=== PATIENT | female | born 1950 | race Caucasian/White ===

== ENCOUNTER 2017-04-14 13:00 | Emergency (ER) | payer MEDICARE, BC, SELFPAY ==
[2017-04-14 13:01] VITALS: BP 113/70; PULSE 92; RESP 18; TEMP 37.3; O2SAT 94; BMI 26.3
--- NOTE | 2017-04-14 13:11 | CT_ITS ---
STUDY: CT ABDOMEN AND PELVIS WITH CONTRAST REASON FOR EXAM: Female, 67 years old. Lower abdominal pain and diarrhea. History of diverticulitis. RADIATION DOSAGE (If Supplied By Facility): CTDIvol = ( 20.39 ) mGy, DLP = ( 1057.14 ) mGycm TECHNIQUE: Transaxial images were obtained from the dome of the diaphragm to the symphysis pubis without oral contrast. 100mL ml of Isovue 300 contrast was administered. Sagittal and coronal images were reconstructed. Individualized dose optimization techniques were used for this CT. COMPARISON: None. FINDINGS: Minimal dependent edema in the posterior lung bases. The visualized portions of the heart are within normal limits. Subcentimeter hypodensity in the right hepatic lobe may represent cyst. Liver ultrasound will help confirm if desired. Normal gallbladder and extrahepatic biliary system. Normal spleen. Normal pancreas. Normal bilateral adrenal glands. Small hypodense cyst in the right kidney. No stones or hydronephrosis. Normal left kidney. Prominent hiatal hernia. Normal small intestine. Multiple diverticula along the sigmoid colon with intramural thickening and inflammatory changes of the pericolic fat suggesting acute diverticulitis. No diverticular abscess. The appendix is visualized and appears normal. Normal abdominal aorta. Normal inferior vena cava. Normal retroperitoneum. Normal urinary bladder. Normal abdominal wall. Pronounced bilateral L5-S1 degenerative facet arthropathy. Moderately pronounced right L4-L5 degenerative facet arthropathy and moderate left L4-L5 degenerative facet arthropathy. Moderate bilateral L3-L4 degenerative facet arthropathy. CT/Abdomen/Pelvis W IV Cont ONLY IMPRESSION: 1. Acute diverticulitis of the sigmoid colon without diverticular abscess. 2. Small free fluid in the cul-de-sac. 3. Prominent hiatal hernia. 4. Subcentimeter hypodense cyst in the right hepatic lobe. Liver ultrasound with confirm if desired. 5. Nonenhancing hypodense cyst in the right kidney. 6. Pronounced bilateral L5-S1 degenerative facet arthropathy, moderately pronounced right L4-L5 degenerative facet arthropathy, moderate left L4-L5 degenerative facet arthropathy and moderate bilateral L3-L4 degenerative facet arthropathy. Electronically Signed: Cole Boudreaux MD at 14:30 EST , Service support ,
--- NOTE | 2017-04-14 13:14 | ED.VISSUMM ---
- ER Visit Summary Date of Service: 04/14/17 Chief Complaint: Abdominal pain History of Present Illness: The patient is a 67 F presents to the emergency department with abdominal pain. The symptoms started over the past 24 hours. Patient describes a cramping, bandlike pain across her lower abdomen. She states that she has had the same symptoms before about a year ago. She was seen in the emergency department in [place] and diagnosed with diverticulitis. She has had no prior abdominal surgery. She does admit to some chills. She has had nausea without vomiting. She denies any change in bowel habits. She has not found anything that improves the symptoms. Physical Examination: Vital signs reviewed General: Well-nourished, well-developed Head: Normocephalic, atraumatic Eyes: Pupils equal and reactive, extraocular muscles intact Neck, supple, no lymphadenopathy Heart: Regular rate and rhythm Respiratory: No distress, clear bilaterally Abdomen: Soft, mildly tender in the suprapubic area into the left lower quadrant without guarding, nondistended, no peritoneal signs Back: Nontender Extremities: Nontender, no edema, no cords Skin: Normal color no rash Neuro: Alert and oriented, no focal or lateralizing deficits Test Results: [] Emergency Department Course and Treatment: The patient has an examination that is consistent with diverticulitis. She has no guarding or peritoneal signs. With her age, I did obtain a CT of her abdomen and pelvis. This does show acute diverticulitis of the sigmoid colon. There is no perforation or abscess. Her labs are unremarkable. She declined analgesics or antiemetics. On reevaluation she is resting comfortably. I did discuss options with the patient. She wants to attempt outpatient therapy and I feel this is reasonable. The patient will be started on Cipro and Flagyl. I did financial services counselor her on the importance of close outpatient follow-up. If she does have change in symptoms, I do want her to come back to the emergency department. She is comfortable with this plan of care. Treatment Plan: [] Disposition: Discharge Impression: 1. Acute diverticulitis This note was generated with Flexuspineation software. It may contain incorrect words, spelling, and punctuation that were not noted in review of the chart prior to signing ED Disposition - Plan for ED Patient: Chief Complaint: Abd Pain Instructions: ED Diverticulitis Prescriptions: Ciprofloxacin [Cipro] 500 mg PO BID #20 tab Metronidazole [Flagyl] 500 mg PO BID #20 tab Referrals: Lolis Witt DO [Primary Care Provider] -
[2017-04-14] MEDS: 0.9% Normal Saline 1,000 ML 1000 ML IV (13:21)
[2017-04-14 13:30] LABS: Bacteria 0 SEEN /hpf (None Seen); Mucous, Urine 0 SEEN /hpf (<or=2+); Red Blood Cells-Urine 0 SEEN /hpf (0-5)
[2017-04-14 13:32] LABS: Color, Urine Yellow (Yellow); Glucose, Dipstick Normal (Normal); Ketone-Dipstick Negative (Negative); Leukocyte Esterase-Dipstick 500 /ul (Negative); Nitrite-Dipstick Negative (Negative); Occult Blood-Urine 10 /ul (Negative); Protein-Dipstick 15 mg/dl (Negative); Urine Bilirubin Dipstick Negative (Negative); Urine Clarity Clear (Clear); Urine Urobilinogen Normal (Normal)
[2017-04-14 13:33] LABS: Absolute Lymphocyte Count 2.17 X10^3/ul (0.83-4.51); Absolute Neutrophil Count 7.5 X10^3/uL (2.0-7.7); Basophil# 0.06 X10^3/uL; Basophil% 0.6 % (0-1); Eosinophil# 0.21 X10^3/uL; Eosinophils% 1.9 % (0-5); Hematocrit 41.7 % (37-47); Lymphocyte # 2.17 X10^3/ul (4.0); Mean Corp Hgb Conc 33.6 g/gl (32-36); Mean Corpuscular Hgb 29.8 pg (27.0-32.0); Mean Corpuscular Volume 88.7 fL (81-99); Mean Platelet Vol. 10.6 fl (6.2-12.0); Monocyte# 0.92 X10^3/uL; Monocyte% 8.5 % (0-10); Neutrophil # 7.47 X10^3/uL (2.7-7.7); Neutrophil % 68.8 % (47-70); POSITIVE COUNT NO; POSITIVE DIFFERENTIAL NO; POSITIVE MORPHOLOGY NO; Platelet Count 205 K/mm3 (150-450); RBC Distribution Width CV 13.5 % (11.6-14.6); RBC Distribution Width SD 43.3 fl (35.1-43.9); White Blood Count 10.9 K/mm3 (4.4-11.0)
[2017-04-14 13:35] LABS: Squamous Epithelial Cells - UA 0-5 SEEN /hpf (5-10); White Blood Cells 0-5 SEEN /hpf (0-5)
[2017-04-14 13:49] LABS: ALB/GLOB Ratio 0.8 RATIO (0.9-2.4); AST(SGOT) 11 U/L (15-37); Alanine Aminotransfer ALT/SGPT 17 U/L (13-56); Albumin, Serum 3.1 g/dL (3.2-5.0); Alkaline Phosphatase 64 U/L (45-117); Anion Gap 9 (5-15); BUN 7 mg/dL (7-18); BUN/Creat Ratio 8.7 RATIO (10-20); Calcium,Total 8.3 mg/dL (8.5-10.1); Chloride 106 mmol/L (98-107); Creatinine, Serum 0.81 mg/dL (0.55-1.02); EST Glomerular Filtration Rate 75 mL/min (>60); Est Glom Filt Rate - Afr Amer 91 mL/min (>60); Estimated Creatinine Clearance 64.64 ml/min; Glucose 92 mg/dL (74-106); Potassium 3.8 mmol/L (3.5-5.1); Protein, Total 7.1 g/dL (6.4-8.2); Sodium Level 141 mmol/L (136-145)
[2017-04-14 15:02] VITALS: BP 96/58; PULSE 76; RESP 16; O2SAT 97
--- NOTE | 2017-04-14 15:03 | ED.RN ---
REVIEWED D/C INSTRUCTIONS, FOLLOW UP CARE, PRESCRIPTIONS, AND S/S THAT WOULD WARRANT A RETURN TO THE ED WITH PT. PT VERBALIZED AN UNDERSTANDING AND DENIES FURTHER QUESTIONS FOR THIS RN. PT SKIN P/W/D, RESP EVEN AND UNLABORED, PT A&O X 3, NO DISTRESS NOTED. PT AMBULATED OUT OF ED, GAIT STEADY.
== END 2017-04-14 15:04 | disposition home or self-care (01) ==
LOC: ED 13:37
PROVIDERS: Emergency Provider Emergency Medicine; Family Provider Internal Medicine; PCP Internal Medicine
DX: K57.32 Diverticulitis of large intestine without perforation or abscess without bleeding (principal); Z87.19 Personal history of other diseases of the digestive system
CPT/HCPCS: 74177; 80053; 81001; 85025; 96360; 96361; 99283; J7030; Q9967; A4216

== ENCOUNTER 2017-06-07 17:09 | Emergency (ER) | payer MEDICARE, BC, SELFPAY ==
[2017-06-07 17:10] VITALS: BP 129/76; PULSE 80; RESP 18; TEMP 37.1; O2SAT 96; BMI 26.3
[2017-06-07 17:55] LABS: Absolute Lymphocyte Count 2.07 X10^3/ul (0.83-4.51); Absolute Neutrophil Count 6.1 X10^3/uL (2.0-7.7); Basophil# 0.03 X10^3/uL; Basophil% 0.3 % (0-1); Eosinophils% 5.3 % (0-5); Hematocrit 40.3 % (37-47); Lymphocyte # 2.07 X10^3/ul (4.0); Mean Corp Hgb Conc 32.3 g/gl (32-36); Mean Corpuscular Hgb 28.8 pg (27.0-32.0); Mean Corpuscular Volume 89.4 fL (81-99); Monocyte# 0.64 X10^3/uL; Monocyte% 6.8 % (0-10); Neutrophil # 6.14 X10^3/uL (2.7-7.7); Neutrophil % 65.4 % (47-70); Platelet Count 199 K/mm3 (150-450); RBC Distribution Width CV 14.4 % (11.6-14.6); RBC Distribution Width SD 47.2 fl (35.1-43.9); Red Blood Count 4.51 M/mm3 (4.2-5.4); White Blood Count 9.4 K/mm3 (4.4-11.0)
[2017-06-07 18:00] LABS: Bacteria 0 SEEN /hpf (None Seen); Mucous, Urine 0 SEEN /hpf (<or=2+); Red Blood Cells-Urine 0 SEEN /hpf (0-5)
[2017-06-07 18:04] LABS: Anion Gap 8 (5-15); BUN 18 mg/dL (7-18); BUN/Creat Ratio 20.7 RATIO (10-20); Calcium,Total 8.8 mg/dL (8.5-10.1); Chloride 102 mmol/L (98-107); Creatinine, Serum 0.87 mg/dL (0.55-1.02); EST Glomerular Filtration Rate 69 mL/min (>60); Est Glom Filt Rate - Afr Amer 83 mL/min (>60); Estimated Creatinine Clearance 60.18 ml/min; Glucose 90 mg/dL (74-106); Potassium 3.8 mmol/L (3.5-5.1); Sodium Level 140 mmol/L (136-145)
[2017-06-07 18:16] LABS: POSITIVE COUNT NO; POSITIVE DIFFERENTIAL NO; POSITIVE MORPHOLOGY NO
[2017-06-07 18:17] LABS: Color, Urine Yellow (Yellow); Glucose, Dipstick Normal (Normal); Ketone-Dipstick 5 mg/dl (Negative); Leukocyte Esterase-Dipstick 500 /ul (Negative); Nitrite-Dipstick Negative (Negative); Occult Blood-Urine Negative /ul (Negative); Protein-Dipstick Negative (Negative); Specific Gravity, Urine 1.005 (1.002-1.030); Urine Bilirubin Dipstick Negative (Negative); Urine Clarity Sl. Cloudy (Clear); Urine Urobilinogen Normal (Normal)
[2017-06-07 18:39] LABS: Amorphous Sediment 1+; Squamous Epithelial Cells - UA 0-5 SEEN /hpf (5-10); White Blood Cells 0-5 SEEN /hpf (0-5)
--- NOTE | 2017-06-07 18:53 | ED.VISSUMM ---
- ER Visit Summary Date of Service: 06/07/17 Chief Complaint: Abdominal pain History of Present Illness: The patient is a 67 F with abdominal pain in the suprapubic area that started early this morning. It has been progressively worsening throughout the day. Patient states this pain feels like her prior rounds of diverticulitis. She has had no vomiting or diarrhea. She states her temperature was 99.6 this afternoon. Patient denies any prior abdominal surgeries. Her last treatment for diverticulitis was approximately 7 weeks ago. Patient states her symptoms were completely resolved until this morning. Physical Examination: Vital signs are unremarkable. Patient is afebrile. Head neck examination is normal. Is regular rate and rhythm. On lung sounds are clear. Abdomen is soft with minimal tenderness in the suprapubic region. There is no guarding or rebound. She has hypoactive but present bowel sounds throughout. Test Results: CBC and chemistry studies are unremarkable. Urinalysis shows 500 leukocyte esterase with 0-5 white cells and 5 epithelial cells. Emergency Department Course and Treatment: Patient just had CT imaging less than 2 months ago. I am reluctant to reimage her at this time. Patient will be treated with a course of Cipro and Flagyl. If she worsens over the weekend she will return for further treatment. I will speak with primary care physician to update them on her care and need for close follow-up. Treatment Plan: [] Disposition: Discharge Impression: Abdominal pain, probable diverticulitis This note was generated with Drive Y[employer] dictation software. It may contain incorrect words, spelling, and punctuation that were not noted in review of the chart prior to signing ED Disposition - Plan for ED Patient: Chief Complaint: Abd Pain Referrals: Lolis Witt DO [Primary Care Provider] -
--- NOTE | 2017-06-07 18:55 | ED.DEP ---
ED Disposition - Plan for ED Patient: Disposition: Home or Assisted Living Chief Complaint: Abd Pain Instructions: ED Diverticulitis Prescriptions: Ciprofloxacin [Cipro] 500 mg PO BID #14 tablet Metronidazole [Flagyl] 500 mg PO Q6H #40 tablet Referrals: Lolis Witt DO [Primary Care Provider] - 5-7 Days
[2017-06-07] MEDS: Ciprofloxacin 500 MG Tablet PO (19:04)
[2017-06-07 19:12] VITALS: BP 130/66; PULSE 74; RESP 16; O2SAT 97
== END 2017-06-07 19:16 | disposition home or self-care (01) ==
PROVIDERS: Emergency Provider Emergency Medicine; Family Provider Internal Medicine; PCP Internal Medicine
DX: R10.30 Lower abdominal pain, unspecified (principal); R11.0 Nausea; Z87.19 Personal history of other diseases of the digestive system
CPT/HCPCS: 80048; 81001; 85025; 87086; 87088; 99284; J7040; A4216

== ENCOUNTER → 2018-10-20 | Outpatient (CLI) | payer MEDICARE, BC, SELFPAY ==
--- NOTE | 2018-10-20 08:38 | BI_ITS ---
MAMMOGRAPHY - BILATERAL SCREENING 3-D TOMOSYNTHESIS REASON FOR EXAM: Female, 68 years old. Bilateral Screening 3-D tomosynthesis PERTINENT HISTORY: Grandmother with breast cancer.. TECHNIQUE: 2-D mammograms and 3-D Tomosynthesis of the breast (s) were performed. CAD was performed. COMPARISON: 08/13/2016, 08/09/2015 FINDINGS: The breast composition is composed of scattered fibroglandular density. Scattered benign calcifications are seen. No dense spiculated masses or suspicious microcalcifications are identified. No architectural distortion is identified. There is no skin thickening or retraction. There has been no significant change since the prior study. BI/SCREEN MAMM (CAD) W/SHALOM BILAT IMPRESSION: No mammographic signs of malignancy. Routine yearly mammograms recommended. ASSESSMENT CATEGORY: BIRADS Category 2: Benign. A letter regarding these results will be sent to the patient by the facility within 30 days. FOLLOW UP RECOMMENDATION: Yearly follow up mammogram recommended. (A) Approximately 10% of breast cancers are not detected by mammography. A normal mammogram should not delay biopsy of a clinically suspicious abnormality. Electronically Signed: Denny Reed MD at 19:22 EDT Tel [phone], Service support ,
== END | disposition home or self-care (01) ==
LOC: OPBI 08:36
PROVIDERS: Family Provider Internal Medicine; PCP Internal Medicine; Referring Provider Nurse Practitioner Women's Health; Visit Provider Nurse Practitioner Women's Health
DX: Z12.31 Encounter for screening mammogram for malignant neoplasm of breast (principal)
CPT/HCPCS: 77063; 77067

== ENCOUNTER → 2018-10-29 | Outpatient (CLI) | payer MEDICARE, BC, SELFPAY ==
[2018-10-20 09:14] VITALS: BMI 26.3
[2018-10-28 09:12] VITALS: BMI 26.3
--- NOTE | 2018-10-29 08:22 | BD_ITS ---
STUDY: DUAL ENERGY X-RAY ABSORPTIOMETRY / DXA REASON FOR EXAM: Female, 68 years old. The patient is postmenopausal. Loss of height. TECHNIQUE: Bone Mineral Density (BMD) measurements of lumbar spine and bilateral hips were obtained. COMPARISON: Comparison is made with prior study dated August 09, 2015. FINDINGS: Lumbar Spine (L1-L4): g/cm2 (0.675) / T-score (-4.1) / Z-score (-2.4) Findings are suggestive of osteoporosis with a high fracture risk. Left Femur Total: g/cm2 (0.748) / T-score (-2.1) / Z-score (-0.6) Left Femoral Neck: g/cm2 (0.664) / T-score (-2.7) / Z-score (-1.0) Right Femur Total: g/cm2 (0.712) / T-score (-2.3) / Z-score (-0.9) Right Femoral Neck: g/cm2 (0.662) / T-score (-2.7) / Z-score (-1.0) The T-Scores on the most recent prior examination were: Lumbar Spine (L1-L4): There has been worsening of bone density since the previous examination. Left Femur Total: which represents a worsening of 7.5%. Right Femur Total: which represents a worsening of 4.3%. BD/Dexa Bone Density Study IMPRESSION: The patient is considered osteoporotic as outlined below according to World Dash Organization (WHO) criteria with a high fracture risk. There has been worsening of bone density since the previous examination. Reference Information: The T-score is the number of standard deviations above or below the standard which is normal for young adults at their peak bone mineral density. The World Health Organization (WHO) interprets the T-scores as follows: Above -1 Normal bone density Between -1 and -2.5 Osteopenia Equal to / or below -2.5 Osteoporosis As a practical clinical guideline, osteopenia may be graded as follows: Mild -1 through -1.5 Moderate -1.6 through -2.0 Severe -2.1 through -2.4 The Z-score is the number of standard deviations above or below age-matched controls. A Z-score of less than -1.5 would be considered abnormal. References: 1. NIH Osteoporosis and Related Bone Diseases http://www.osteo.org 2. International Society for Clinical Densitometry http://www.iscd.org 3. National Osteoporosis Foundation http://www.nof.org Electronically Signed: Zion Ervin, at 15:18 EDT , Service support ,
== END | disposition home or self-care (01) ==
LOC: OPBD 08:16
PROVIDERS: Family Provider Internal Medicine; PCP Internal Medicine; Referring Provider Obstetrics & Gynecology; Visit Provider Obstetrics & Gynecology
DX: M81.0 Age-related osteoporosis without current pathological fracture (principal)
CPT/HCPCS: 77080

== ENCOUNTER → 2018-10-29 | Outpatient (CLI) | payer MEDICARE, BC, SELFPAY ==
[2018-10-28 09:12] VITALS: BMI 26.3
[2018-10-29 09:54] LABS: AST(SGOT) 18 U/L (15-37); Alanine Aminotransfer ALT/SGPT 25 U/L (13-56); Albumin, Serum 3.5 g/dL (3.2-5.0); Alkaline Phosphatase 74 U/L (45-117); Anion Gap 10 (5-15); BUN 13 mg/dL (7-18); Calcium,Total 8.6 mg/dL (8.5-10.1); Chloride 108 mmol/L (98-107); Cholesterol 225 mg/dL (200); Creatinine, Serum 0.87 mg/dL (0.55-1.02); EST Glomerular Filtration Rate 69 mL/min (>60); Est Glom Filt Rate - Afr Amer 83 mL/min (>60); Globulin 3.5 g/dL (2.2-4.2); Glucose 89 mg/dL (74-106); High Density Lipoprotein 61 mg/dL; Potassium 4.2 mmol/L (3.5-5.1); Sodium Level 145 mmol/L (136-145); Triglycerides 127 mg/dL; Very Low Density Lipoprotein 25 mg/dL (5-40)
[2018-10-29 10:49] LABS: Vitamin D,25 Hydroxy 23.4 ng/mL (29.95-100.01)
== END | disposition home or self-care (01) ==
LOC: PAVLAB 08:40
PROVIDERS: Family Provider Internal Medicine; PCP Internal Medicine; Referring Provider Obstetrics & Gynecology; Visit Provider Obstetrics & Gynecology
DX: M81.0 Age-related osteoporosis without current pathological fracture (principal); Z13.220 Encounter for screening for lipoid disorders; Z13.1 Encounter for screening for diabetes mellitus
CPT/HCPCS: 36415; 80053; 80061; 82306

== ENCOUNTER → 2018-11-26 15:33 | Outpatient (CLI) | payer MEDICARE, BC, SELFPAY ==
[2018-11-26 14:07] VITALS: BMI 25.7
--- NOTE | 2018-11-26 15:36 | EKG12_ITS ---
Test Reason : Blood Pressure : / mmHG Vent. Rate : 056 BPM Atrial Rate : 056 BPM P-R Int : 154 ms QRS Dur : 088 ms QT Int : 400 ms P-R-T Axes : 013 021 061 degrees QTc Int : 386 ms Sinus bradycardia Otherwise normal ECG No previous ECGs available Confirmed by MAISHA BA, RACHEL ([id number]), web editor LAWRENCE HILL ([id number]) on 11/28/2018 10:41:35 A M Referred By: Rich Rivera Confirmed By:RITO FERRERA MD
== END ==
PROVIDERS: Family Provider Internal Medicine; PCP Internal Medicine; Referring Provider Internal Medicine; Visit Provider Internal Medicine
DX: E78.5 Hyperlipidemia, unspecified (principal); Z82.49 Family history of ischemic heart disease and other diseases of the circulatory system
CPT/HCPCS: 93005

== ENCOUNTER → 2018-12-10 | Outpatient (CLI) | payer MEDICARE, BC, SELFPAY ==
[2018-12-10 08:06] VITALS: BMI 25.7
[2018-12-10 08:26] LABS: Bacteria 0 SEEN /hpf (None Seen); Mucous, Urine 0 SEEN /hpf (<or=2+); Red Blood Cells-Urine 0 SEEN /hpf (0-5); White Blood Cells 0 SEEN /hpf (0-5)
[2018-12-10 12:35] LABS: Absolute Lymphocyte Count 1.87 X10^3/uL (0.83-4.51); Absolute Neutrophil Count 4.3 X10^3/uL (2.0-7.7); Basophil# 0.03 X10^3/uL; Basophil% 0.4 % (0-1); Eosinophil# 0.11 X10^3/uL; Eosinophils% 1.6 % (0-5); Hematocrit 43.3 % (37-47); Hemoglobin 13.8 g/dL (12.0-15.0); Lymphocyte # 1.87 X10^3/ul (4.0); Lymphocyte % 27.3 % (19-41); Mean Corp Hgb Conc 31.9 g/dL (32-36); Mean Corpuscular Hgb 29.6 pg (27.0-32.0); Mean Corpuscular Volume 92.7 fL (81-99); Mean Platelet Vol. 11.8 fl (6.2-12.0); Monocyte# 0.55 X10^3/uL; NRBC Flagged by Analyzer 0 % (0-5); Neutrophil # 4.26 X10^3/uL (2.7-7.7); Neutrophil % 62.4 % (47-70); Platelet Count 189 K/mm3 (150-450); RBC Distribution Width CV 12.5 % (11.6-14.6); RBC Distribution Width SD 42.5 fl (35.1-43.9); Red Blood Count 4.67 M/mm3 (4.2-5.4); White Blood Count 6.8 K/mm3 (4.4-11.0)
[2018-12-10 12:40] LABS: Color, Urine Yellow (Yellow); Glucose, Dipstick Normal (Normal); Ketone-Dipstick Negative (Negative); Leukocyte Esterase-Dipstick Negative /ul (Negative); Nitrite-Dipstick Negative (Negative); Occult Blood-Urine Negative /ul (Negative); Protein-Dipstick Negative (Negative); Urine Bilirubin Dipstick Negative (Negative); Urine Clarity Sl. Cloudy (Clear); Urine Urobilinogen Normal (Normal)
[2018-12-10 13:02] LABS: Squamous Epithelial Cells - UA 0-5 SEEN /hpf (5-10)
== END | disposition home or self-care (01) ==
PROVIDERS: Family Provider Internal Medicine; PCP Internal Medicine; Visit Provider Nurse Practitioner Family
DX: R10.30 Lower abdominal pain, unspecified (principal)
CPT/HCPCS: 36415; 81001; 85025

== ENCOUNTER 2019-09-12 09:39 | Emergency (ER) | payer MEDICARE, BC, SELFPAY ==
[2019-06-15 08:50] VITALS: BMI 25.7
[2019-09-12 09:40] VITALS: BP 125/92; PULSE 69; RESP 15; TEMP 36.2; O2SAT 98; BMI 23.0
--- NOTE | 2019-09-12 10:00 | RAD_ITS ---
STUDY: X-RAY - LEFT HUMERUS REASON FOR EXAM: Female, 69 years old. FALL. PAIN UPPER ARM TECHNIQUE: 2 view(s) of the humerus. COMPARISON: None. FINDINGS: Normal visualized humerus. There is no demonstrated fracture or osseous destructive process. There is no demonstrated soft tissue abnormality. RAD/Humerus min 2 Views IMPRESSION: Normal x-ray examination of the humerus. Electronically Signed: Diaz Justice MD at 10:47 EDT Tel , Service support ,
--- NOTE | 2019-09-12 10:01 | RAD_ITS ---
STUDY: X-RAY - LEFT SHOULDER REASON FOR EXAM: Female, 69 years old. FALL. PAIN UPPER ARM. YVIEW SHOULDER IS INCLUDED ON HUMERUS VIEWS TECHNIQUE: 2 view(s) of the shoulder. COMPARISON: None. FINDINGS: Normal glenohumeral articulation. Normal acromioclavicular joint. Normal acromion. Normal humeral head and visualized proximal humerus. The soft tissue structures are unremarkable. Normal visualized pulmonary apex. RAD/Shoulder min 2 Views IMPRESSION: Normal x-ray examination of the shoulder. Electronically Signed: Diaz Justice MD at 10:49 EDT Tel , Service support ,
--- NOTE | 2019-09-12 10:02 | ED.VIS.GEN ---
History of Present Illness Chief Complaint: Upper Extremity Injury Informant: Patient Narrative: Patient is a 69-year-old female who presents to the emergency department for left upper extremity injury. She states she was getting up out of the chair when she fell and landed on her left side. She is having left shoulder/humerus pain. She has difficulty moving that extremity due to the pain. She has not taken anything for that. She currently rates the pain as severe. She denies hitting her head or losing consciousness. She denies any neck or back pain. She is not on any anticoagulation or antiplatelet medications. She was able to ambulate after the event. No hip pain or lower extremity pain. She is right-handed at baseline. She denies any loss of sensation going down her arm. Past Medical History - Allergies and Home Meds Allergies/Adverse Reactions: Allergies betamethasone Allergy (Severe, Verified 11/26/18 14:05) Swelling erythromycin base Allergy (Severe, Verified 11/26/18 14:05) Swelling clindamycin Allergy (Verified 11/26/18 14:05) Swelling Penicillins Allergy (Verified 11/26/18 14:05) Hives prednisone Allergy (Verified 11/26/18 14:05) Hives ARUDIS Allergy (Uncoded 11/26/18 14:05) Swelling Primary Care Physician: Rich Rivera MD [Primary Care Provider] - Prior records reviewed: Yes Past Medical History: - - Osteoporosis Smoking Status: Never smoker Drugs: None Review of Systems All systems negative except as indicated General: Denies: Chills, Fever, Sweats Eyes: Denies: Visual changes - bilaterally, Diplopia ENT: Denies: Rhinorrhea Cardiovascular: Denies: Chest pain, Palpitations Respiratory: Denies: Dyspnea, Cough, Dyspnea on exertion Gastrointestinal: Denies: Abdominal pain, Nausea, Vomiting Genitourinary: Denies: Dysuria, Hematuria, Frequency Musculoskeletal: Reports: Extremity Pain. Denies: Neck pain, Back pain Skin: Denies: Wounds Neurological: Denies: Headache, Weakness, Numbness Physical Exam Vital Signs/Narrative: Vital Signs Temp Pulse Resp BP Pulse Ox 09/12/19 09:40 97.2 F L 69 15 125/92 H 98 Inital Vital Signs reviewed: Yes General: Well nourished, Well developed, No Acute Distress Head: Normocephalic, Atraumatic Eyes: Perrl, EOMI ENT: Moist mucous membranes, No rhinorrhea Neck: Supple, Nontender Cardiovascular: Regular rate, Regular rhythm, No murmurs Respiratory: No distress, CTA bilaterally, Chest nontender Abdomen: Soft, Nontender, Nondistended, Normal bowel sounds Back: Nontender, Normal Inspection. Negative for: Spinal tenderness Extremities: No edema, Tenderness - Left proximal humerus. Patient holding her arm against her body. 2+ radial pulse. Neurovascularly intact. Good therapy administrative assistant strength. No pain with anterior hip compression. Skin: Normal color, No rash Neurological: Alert, Oriented x3, Cranial nerves II-XII grossly intact, Normal Strength, Normal Sensation Psychological: Normal affect, Normal Mood Diagnostic/Tx/Re-eval - Medical Decision Making Patient presents to the emergency department after a fall today. She is complaining of left upper extremity pain. Will give Tylenol for treatment as she is requesting this. We will also obtain x-rays of the upper extremity. She did not hit her head or lose consciousness she is not on anticoagulation. We will hold off on CT scan of the head and cervical spine. X-rays did not show any acute fracture or dislocation. We will place her in a sling at this time. She can continue to take Tylenol for symptomatic treatment. She is advised on frozen shoulder and to move the shoulder as much as possible throughout the day. She is to follow-up with her PCP. She understands that the x-ray cannot show a complete image. She could still have an underlying abnormality that was not discovered. If she continues to have pain she may need an orthopedic referral. This was all explained to her. She understands and is agreeable this plan. Will discharge home in stable condition. ED Disposition - Plan for ED Patient: Disposition: Home or Assisted Living Diagnosis: Fall, Shoulder contusion Instructions: ED EXTREMITY CONTUSION Upper, ED Sling Referrals: Rich Rivera MD [Primary Care Provider] - 3-5 Days
[2019-09-12] MEDS: Acetaminophen 325 MG Tablet 650 MG PO (10:06)
== END 2019-09-12 11:20 | disposition home or self-care (01) ==
PROVIDERS: Emergency Provider Emergency Medicine; PCP Internal Medicine
DX: S40.012A Contusion of left shoulder, initial encounter (principal); M81.0 Age-related osteoporosis without current pathological fracture; W19.XXXA Unspecified fall, initial encounter; Y93.9 Activity, unspecified; Y92.9 Unspecified place or not applicable
CPT/HCPCS: 73030; 73060; 99283

== ENCOUNTER → 2019-10-23 15:54 | Outpatient (CLI) | payer MEDICARE, BC, SELFPAY ==
[2019-10-23 15:47] VITALS: BMI 23.0
--- NOTE | 2019-10-23 15:54 | RAD_ITS ---
STUDY: X-RAY - LEFT SHOULDER REASON FOR EXAM: Female, 69 years old. Fall 7 weeks ago. Breech for something today and felt a pop in the shoulder. TECHNIQUE: 4 view(s) of the shoulder. COMPARISON: None. FINDINGS: There is mild degenerative arthrosis of the glenohumeral articulation. Normal acromioclavicular joint. Normal acromion. There is no acute fracture, dislocation or destructive osseous pathology. Normal humeral head and visualized proximal humerus. The soft tissue structures are unremarkable. Normal visualized pulmonary apex. RAD/Shoulder min 2 Views IMPRESSION: Minimal narrowing of the glenohumeral joint. There is no acute fracture or dislocation. Electronically Signed: Junior Saavedra DO at 21:59 EDT Tel [phone], Service support ,
== END ==
PROVIDERS: PCP Internal Medicine; Visit Provider Physician Assistant Surgical
DX: S46.912A Strain of unspecified muscle, fascia and tendon at shoulder and upper arm level, left arm, initial encounter (principal)
CPT/HCPCS: 73030

== ENCOUNTER 2019-12-15 11:00 | Outpatient (RCR) | payer MEDICARE, BC, SELFPAY ==
[2019-10-23 16:23] VITALS: BMI 24.8
[2019-10-28 11:02] VITALS: BMI 23.9
--- NOTE | 2019-11-02 12:49 | HP.PTEVAL_ITS ---
Patient's Visit Information ELSY MCCLURE is a 69 year old F referred to Physical Therapy by MILADIS Whyte with a diagnosis of L shoulder tendonitis. Date of Evaluation: 11/02/19 Physical Therapist: Skyler Ty DPT, OCS, CSCS - Visit Plan Frequency: 3x /Week Duration: 4-6 Weeks Plan: 3x/week for 3-6 weeks as needed for. 1. PROM and mobs L G-h, pec stretches to [place]elrance. 2. strength RC and scap and posture. 3. ice as needed. Has tens unit at home - Subjective Fell September 11 out of chair catching foot. Landed on L arm. L shouldr and upper arm hurts. Has to lie on lazy Boy, can't lie in bed. Tried ice adn TENs and is still a dull ache. Pain is post shoulder and down upper arm. 8/10 with lifting arma dn comfortable rest sitting. Keeps you up at night due to uncomfortable position, wakes up alot even in lazy boy. 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 Picking up items to the side such as legers causes her to use other arm. is R handed. Hobbies include grandkids 16 down to 2. Has to lift t hem with R UE. Using R arm in shower but drying back is hard. Pulling up pants is hard. - Pain L shoulder Pain Intensity (Out of 10): 0 Pain Intensity Range: 0, 8 - Objective Posture is forward shoulder and forward head. Tender to touch supraspinatus and subscap insertion moderately. - ext rotation lag test. - drop arm test. + HK and neer impingement tests. AROM R UE WFL, L UE 140 flexion and abduction, 75 ext rotation(same as right) and 70 IR at 90 abd. Firm endfeel with PROM tobias vation and pain at end range of elevation A/PROM. strength is 4/5 R shoulder except IR 4-. L shoulder is 4- IR, 4- ext rotation with pain, 4- flexion and abduction with discomfort and some scapular cheating. Neck aROM WFL - Goals Goal 1:: Sleep in bed without waking at night due to pain Goal Time Frame: 4-6 Weeks Goal 2:: Pain 90% better and 1/10 at worst Goal Time Frame: 4-6 Weeks Goal 3:: Reach overhead and do hair without difficulty. Goal Time Frame: 4-6 Weeks Goal 4:: I approp HEP to minimize future problems Goal Time Frame: 4-6 Weeks - Rehabilitation Potential Physical Therapy Diagnosis: L soulder tendonitis vs RCT Rehabilitation Potential: Fair - Anticipated Interventions Patient/Client Instruction: Educate patient on: Condition, Plan of Care For the Purpose of:: To decrease pain, To increase ROM, To improve muscle performance and motor function, To increase tolerance to activity/condition/position Therapeutic Exercise to Include: Strength training, Postural training, Flexibilty training, Neuromotor development, Passive ROM, Active ROM For the Purpose of:: To decrease pain, To increase tolerance to activity/condition/position, To improve ability of physical actions for home/community/work/leisure Manual Therapy Techniques to Include: Mobilization For the Purpose of:: To decrease pain, To increase ROM Cryotherapy (ice pack, ice massage): Yes For the Purpose of:: To decrease pain, To decrease swelling/inflammation Thank you for the opportunity to evaluate your patient. For Medicare and Medicare HMO plans, please review the plan of care and approve it. It will need to be FAXED BACK to us at [phone] for Medicare purposes. For Medicare only, by signing this I certify the plan of care. Please let me know if there are questions or concerns regarding this plan of care. Physician Signature: _Date:
--- NOTE | 2019-11-30 09:24 | HP.PTREVAL_ITS ---
MILADIS Whyte, It has been my pleasure to treat ELSY MCCLURE over the last 9 visits for L shoulder tendonitis. Please see the progress note below for an update on the physical therapy plan of care! Subjective: Better. Tempurepedic bed really helps. Hot shower loosens her up. Pain is not as severe. Has locked up two times lately. Still feels weak. Pain over weekend was 8/10 upon waking which is not always the case, may have laid wrong. Was pretty good the rest of the day. Activities are pretty normal. Sleeping OK in new bed. Dressing is OK and can do hair with L with heavy mathematics academic chair. Maybe a little tired. Objective/Function: Full aROM symmetrical with R without pain. Weakness persists in ext rotationa nd IR at 4- and LLA flexion abd at 3+ and painful with LLA. Painful ARc. overall much better and will continue to strengthen at home Plan Plan: f/u two weeks for return to doctor note, call prior if worsening. Potts trengthen at home per HEP Goals Goal 1:: Sleep in bed without waking at night due to pain Goal Time Frame: 4-6 Weeks Goal Progress: Goal Met Goal 2:: Pain 90% better and 1/10 at worst Goal Time Frame: 4-6 Weeks Goal Progress: Progressing Goal 3:: Reach overhead and do hair without difficulty. Goal Time Frame: 4-6 Weeks Goal Progress: Goal Met Goal 4:: I approp HEP to minimize future problems Goal Time Frame: 4-6 Weeks Goal Progress: Goal Met, band Anticipated Interventions Patient/Client Instruction: Educate patient on: Condition, Plan of Care For the Purpose of:: To decrease pain, To increase ROM, To improve muscle performance and motor function, To increase tolerance to activity/condition/position Therapeutic Exercise to Include: Strength training, Postural training, Flexibilty training, Neuromotor development, Passive ROM, Active ROM For the Purpose of:: To decrease pain, To increase tolerance to activity/condition/position, To improve ability of physical actions for home/community/work/leisure Manual Therapy Techniques to Include: Mobilization For the Purpose of:: To decrease pain, To increase ROM Cryotherapy (ice pack, ice massage): Yes For the Purpose of:: To decrease pain, To decrease swelling/inflammation Please do not hesitate to contact me at [phone] by phone or if you have questions or concerns regarding this new plan of care! Sincerely, Skyler Ty, DPT, OCS, CSCS
--- NOTE | 2019-12-15 11:19 | HP.PTDCSUM ---
It has been my pleasure to treat ELSY MCCLURE referred by MILADIS Whyte, with the diagnosis of L shoulder tendonitis for a total of 10 visit(s). Discharge Date: 12/15/19 Please see the following information for a summary of their discharge status. Subjective: Seems to be going better. Doing bands and weights. Sometimes wakes up with pain. I can pull pants up again without pain. Going the right way. No appointment with doctor. Doing blue and orane bands at home. and 4# OH. L shoulder Pain Intensity (Out of 10): 1 % Improvement: 80 Objective/Function: Full aROM L shoulder but tightness felt end flexion and abduction, Full IR/ER without pain. Strength is 4/5 ER/IR without pain. 4- flexiona dn abductionw ith some discomfort today. Tightness in pec and inferior capsule. overall much better and trending the right way. Goal 1:: Sleep in bed without waking at night due to pain Goal Progress: Goal Met Goal 2:: Pain 90% better and 1/10 at worst Goal Progress: Progressing Goal 3:: Reach overhead and do hair without difficulty. Goal Progress: Goal Met Goal 4:: I approp HEP to minimize future problems Goal Progress: Goal Met Plan: d/c, pt to contact doctor if progress stagnates. If there are questions or concerns regarding this patient's physical therapy, please feel free to call me at [phone]. Thank you for the referral of this patient. Sincerely, Skyler Ty, DPT, OCS, CSCS
== END 2019-12-15 19:00 | disposition home or self-care (01) ==
LOC: PT 11:00
PROVIDERS: PCP Internal Medicine; Visit Provider Physician Assistant Surgical
DX: M77.9 Enthesopathy, unspecified (principal)
CPT/HCPCS: 97014; 97110; 97140; 97161; 97164; 97530; G0283

== ENCOUNTER → 2020-03-07 14:42 | Outpatient (CLI) | payer MEDICARE, BC, SELFPAY ==
[2019-10-28 11:02] VITALS: BMI 23.9
--- NOTE | 2020-03-07 14:45 | BI_ITS ---
MAMMOGRAPHY - BILATERAL SCREENING REASON FOR EXAM: Female, 70 years old. Routine annual screening examination. PERTINENT HISTORY: Grandmother with breast cancer. TECHNIQUE: Digital bilateral breast shalom (3D mammographic acquisition) in the CC and MLO projections. 2-D mediolateral oblique (MLO) and craniocaudad (CC) views of both breasts were obtained. CAD: Full Field Digital Mammography with Computer Added Detection was performed. COMPARISON: Comparison is made with prior study dated 10/20/2018 and 08/13/2016. FINDINGS: Breast Composition: There are scattered areas of fibroglandular density. There are no dominant masses or suspicious calcifications. No other significant abnormalities are identified. There has been no significant change since the prior study. BI/SCREEN MAMM (CAD) W/SHALOM BILAT IMPRESSION: Stable bilateral screening mammogram. Yearly follow-up mammogram recommended. (A) ASSESSMENT CATEGORY: BIRADS Category 1: Negative. A letter regarding these results will be sent to the patient by the facility within 30 days. Approximately 10% of breast cancers are not detected by mammography. A normal mammogram should not delay biopsy of a clinically suspicious abnormality. [id number] Electronically Signed: Zion Ervin, at 15:33 EST , Service support ,
== END ==
PROVIDERS: PCP Internal Medicine; Referring Provider Obstetrics & Gynecology; Visit Provider Obstetrics & Gynecology
DX: Z12.31 Encounter for screening mammogram for malignant neoplasm of breast (principal)
CPT/HCPCS: 77063; 77067

== ENCOUNTER → 2020-06-13 11:00 | Outpatient (CLI) | payer MEDICARE, BC, SELFPAY ==
[2020-06-13 09:42] VITALS: BMI 22.2
[2020-06-13 11:56] LABS: Vitamin D,25 Hydroxy 45.7 ng/mL
[2020-06-13 11:59] LABS: ALB/GLOB Ratio 1.1 RATIO (0.9-2.4); AST(SGOT) 14 U/L (15-37); Alanine Aminotransfer ALT/SGPT 19 U/L (13-56); Albumin, Serum 3.8 g/dL (3.2-5.0); Alkaline Phosphatase 51 U/L (45-117); Anion Gap 5 (5-15); BUN 19 mg/dL (7-18); BUN/Creat Ratio 24.2 RATIO (10-20); Calcium,Total 8.7 mg/dL (8.5-10.1); Chloride 105 mmol/L (98-107); Cholesterol 198 mg/dL (200); Creatinine, Serum 0.79 mg/dL (0.55-1.02); EST Glomerular Filtration Rate 77 mL/min (>60); Est Glom Filt Rate - Afr Amer 93 mL/min (>60); Globulin 3.5 g/dL (2.2-4.2); Glucose 88 mg/dL (74-106); High Density Lipoprotein 79 mg/dL; Potassium 3.7 mmol/L (3.5-5.1); Protein, Total 7.3 g/dL (6.4-8.2); Sodium Level 140 mmol/L (136-145); Triglycerides 82 mg/dL; Very Low Density Lipoprotein 16 mg/dL (5-40)
== END ==
PROVIDERS: PCP Internal Medicine; Referring Provider Obstetrics & Gynecology; Visit Provider Obstetrics & Gynecology
DX: Z01.419 Encounter for gynecological examination (general) (routine) without abnormal findings (principal); M81.0 Age-related osteoporosis without current pathological fracture
CPT/HCPCS: 36415; 80053; 80061; 82306; 84443

== ENCOUNTER 2020-08-28 14:03 | Emergency (ER) | payer MEDICARE, BC, SELFPAY ==
[2020-06-15 11:08] VITALS: BMI 22.2
[2020-08-28 14:04] VITALS: BP 148/75; PULSE 68; RESP 16; TEMP 37; O2SAT 97; BMI 21.6
--- NOTE | 2020-08-28 14:30 | RAD_ITS ---
STUDY: X-RAY CHEST REASON FOR EXAM: Female, 70 years old. chest pain TECHNIQUE: Frontal portable view of the chest COMPARISON: None. FINDINGS: The lungs are clear and expanded. There is no demonstrated pleural abnormality. Normal size heart. Normal mediastinum and nathan. Normal visualized pulmonary arteries. Normal visualized aortic arch and descending thoracic aorta. Normal visualized thoracic spine. Normal visualized ribs, clavicles, and shoulders. There is no demonstrated abnormality of the visualized soft tissue structures of the upper abdomen. RAD/Chest 1 View (Portable) IMPRESSION: Normal x-ray examination of the chest. Electronically Signed: Arnel Kaye MD at 15:56 EDT Tel , Service support ,
--- NOTE | 2020-08-28 14:30 | EKG12_ITS ---
Test Reason : CP Blood Pressure : / mmHG Vent. Rate : 059 BPM Atrial Rate : 059 BPM P-R Int : 172 ms QRS Dur : 082 ms QT Int : 418 ms P-R-T Axes : 043 012 070 degrees QTc Int : 413 ms Sinus bradycardia Nonspecific T wave abnormality Abnormal ECG Confirmed by SIVA BA, ABHISHEK ([id number]), editor in chief LAWRENCE HILL ([id number]) on 08/30/2020 9:08:00 AM Referred By: Confirmed By:ABHISHEK PANIAGUA MD
--- NOTE | 2020-08-28 14:30 | CT_ITS ---
STUDY: CT ABDOMEN AND PELVIS WITH CONTRAST REASON FOR EXAM: Female, 70 years old. Abdominal pain for 3 weeks RADIATION DOSAGE (If Supplied By Facility): CTDIvol = ( 15.58 ) mGy, DLP = ( 737.19 ) mGycm TECHNIQUE: CT images were obtained from the dome of the diaphragm to the symphysis pubis without oral contrast. Oral and amp; IV Gastrografin and amp; 100mL Isovue-370 was administered. Sagittal and coronal images were reconstructed. Individualized dose optimization techniques were used for this CT. COMPARISON: 14 April 2017 FINDINGS: The visualized lung bases are unremarkable. The visualized portions of the heart are within normal limits. Normal liver. There is a simple 1 cm cyst in the periphery of segment 8, not requiring further imaging. Normal gallbladder and extrahepatic biliary system. Normal spleen. Normal pancreas. Normal bilateral adrenal glands. Normal right kidney. Normal left kidney. Right kidney contains a small benign 1 cm hypodensity in the medial posterior cortex of the interpolar region with possible fat inclusion, stable since 3 years prior. There is no intestinal obstruction. There is colonic diverticulosis without diverticulitis. 6 Normal abdominal aorta. Normal inferior vena cava. Normal retroperitoneum. Normal urinary bladder. Normal abdominal wall. Normal osseous structures. CT/Abdomen/Pelvis WITH Contrast IMPRESSION: No acute findings. Electronically Signed: Arnel Kaye MD at 17:02 EDT Tel , Service support ,
--- NOTE | 2020-08-28 14:38 | EDS_ITS ---
HPI History of Present Illness Chief Complaint: Chest Pain Informant: patient Narrative Narrative: 70-year-old female presents the emergency department with epigastric pain. Patient states that beginning August 06 she would have intermittent episodes where she would get a sharp severe epigastric pain nonradiating. She would vomit and would feel better. This would come on around the times that she would eat. It then happened again on the and again would have days where everything seemed fine and other times it would come back. Last episode was Saturday. Today at [facility] she was talking to the cardiology nurse who recommended she get it checked out. There is nothing specific that happened today that led today's visit just the episodes of the previous month. [facility] Medical History Angiomyolipoma of kidney Arthritis Basal cell carcinoma (BCC) of back Diverticulitis Hemorrhoids History of UTI Melanoma in situ of back Osteoporosis Shoulder pain Home Medications meloxicam 15 mg PO DAILY 04/14/17 [History Last Taken Unknown] calcium carbonate 500 mg calcium (1,250 mg) tablet 500 mg PO DAILY 10/23/19 [History Last Taken Unknown] zinc 50 mg tablet 50 mg PO DAILY 10/23/19 [History Last Taken Unknown] ascorbic acid (vitamin C) 500 mg capsule 500 mg PO DAILY cap 10/28/19 [History Last Taken Unknown] cyanocobalamin (vitamin B-12) 1,000 mcg capsule 1,000 mcg PO DAILY 06/13/20 [History Last Taken Unknown] hydroxychloroquine 200 mg tablet 200 mg PO DAILY 06/13/20 [History Last Taken Unknown] Allergy/AdvReac Type Severity Reaction Status Date / Time betamethasone Allergy Severe Swelling Verified 08/28/20 14:08 erythromycin base Allergy Severe Swelling Verified 08/28/20 14:08 clindamycin Allergy Swelling Verified 08/28/20 14:08 ketoprofen [From Orudis] Allergy Unknown Verified 08/28/20 14:08 Penicillins Allergy Hives Verified 08/28/20 14:08 prednisone Allergy Hives Verified 08/28/20 14:08 Family History Grandmother Breast cancer, Onset Age: 50 Father Myocardial infarction Sister Asthma Grandfather CVA (cerebral vascular accident) Parkinsons disease Mother Parkinsons disease Osteoporosis Surgical History H/O: knee surgery Social History household members: spouse Smoking Status: Never smoker alcohol intake: never substance use type: does not use caffeine: Yes what type of physical activity do you participate in: walking seatbelt use: always do you feel safe at home: Yes additional social history: 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 ROS ROS ED Constitutional Constitutional ED: Denies chills or weight loss Eyes Eyes: Denies change in vision or diplopia ENT ENT ED: Denies ear pain, rhinorrhea or sore throat Cardiovascular Cardiovascular: Denies chest pain, orthopnea, palpitations or racing heartbeat Respiratory/Chest Respiratory/Chest: Denies cough, dyspnea or orthopnea Gastrointestinal Gastrointestinal: Reports abdominal pain, nausea and vomiting; Denies diarrhea Genitourinary Genitourinary ED: Denies dysuria, hematuria or urinary frequency Musculoskeletal Musculoskeletal: Denies arthralgias or myalgias Integumentary Denies abscess or rash Neurologic Neurologic: Denies headache(s) or weakness Psychiatric Psychiatric: Denies anxiety, depression, suicidal ideation or suicidal thoughts Endocrine Endocrinology: Denies polydipsia, polyphagia or polyuria Allergic/Immunologic Allergic/Immunologic ED: Denies mouth swelling, tongue swelling or urticaria EXAM Physical Exam Const Vital Signs: 08/28/20 14:04 08/28/20 14:14 08/28/20 16:04 Temperature 98.6 F Temperature Source Temporal Pulse Rate 68 56 L Respiratory Rate 16 15 Respiratory Effort Normal Non-Labored Respiratory Pattern Normal Blood Pressure 148/75 H 141/76 H Blood Pressure Mean 99 97 Pulse Ox 97 98 Oxygen Delivery Method Room Air Room Air 08/28/20 17:23 Temperature Temperature Source Pulse Rate 54 L Respiratory Rate 18 Respiratory Effort Respiratory Pattern Blood Pressure 141/78 H Blood Pressure Mean Pulse Ox 98 Oxygen Delivery Method Positive well nourished and well developed General Appearance ED: well developed HEENT Reports normocephalic, head/scalp atraumatic and moist mucous membranes Eyes PERRL and EOMs intact bilaterally Neck no lymphadenopathy, supple and no JVD Resp normal respiratory effort and clear to auscultation bilaterally Cardio regular rate, regular rhythm and no murmurs GI normal to inspection, nondistended, normoactive bowel sounds and non-tender Palpation: soft Back/Spine no CVA tenderness and normal ROM Extremity normal to inspection General Extremety ED: Negative for edema General Extremity: Negative for edema Neuro oriented x3 and CN's II-XII intact bilaterally Sensorium / Orientation: alert Motor Exam: strength 5/5 throughout Psych mental status grossly normal Mood & Affect: Negative for depressed or tearful Skin no rashes or lesions noted and no wounds Heart Score History: Slightly/Non-Suspicious ECG: Normal Age: >/= 65 years Risk Factors: 1 or 2 Risk Factors Troponin: </= Normal Limit Score: 3 MDM MDM MDM Narrative Medical decision making narrative: My interpretation of the plain film of the chest is no acute process. CT the abdomen and pelvis was negative. CMP was normal. Troponin 5.2. Lipase 72. CBC is normal. At this point I think the patient can be discharged home. She has not had any symptoms since Saturday. She may be developing a gastroparesis or gastric outlet obstruction. Would recommend early follow-up. Lab Data Attestation: I reviewed the patient's lab results. Labs: Laboratory Results - last 24 hr 08/28/20 08/28/20 14:18 14:18 WBC 5.6 RBC 4.98 Hgb 14.6 Hct 45.1 MCV 90.6 MCH 29.3 MCHC 32.4 RDW Std Deviation 42.1 RDW Coeff of Archana 12.7 Plt Count 216 MPV 10.7 Immature Gran % (Auto) 0.200 Neut % (Auto) 50.5 Lymph % (Auto) 39.5 Burt % (Auto) 6.6 Eos % (Auto) 2.5 Baso % (Auto) 0.7 Absolute Neuts (auto) 2.8 Absolute Lymphs (auto) 2.20 Nucleated RBC % 0 Sodium 138 Potassium 3.8 Chloride 105 Carbon Dioxide 26.0 Anion Gap 7 BUN 10 Creatinine 0.72 Estim Creat Clear Calc 52.05 Est GFR (MDRD) Af Amer 102 Est GFR (MDRD) Non-Af 84 BUN/Creatinine Ratio 13.8 Glucose 85 Calcium 8.2 L Total Bilirubin 0.80 AST 18 ALT 24 Alkaline Phosphatase 57 Troponin I High Sens 5.2 Total Protein 7.1 Albumin 3.7 Globulin 3.4 Albumin/Globulin Ratio 1.1 Lipase 72 L Radiography Diagnostic Testing: Radiology Impression Abdomen/Pelvis CT 08/28/20 14:30 IMPRESSION: No acute findings. Electronically Signed: Arnel Kaye MD at 17:02 EDT Tel , Service support , Chest X-Ray 08/28/20 14:30 IMPRESSION: Normal x-ray examination of the chest. Electronically Signed: Arnel Kaye MD at 15:56 EDT Tel , Service support , EKG Initial EKG: Attestation: I personally reviewed and interpreted this EKG as follows: Comments: EKG shows sinus bradycardia at a rate of 59. No concerning features of ACS. Appears grossly unchanged from EKG dated 26 November 2018. Discharge Plan Triage Chief Complaint: Chest Pain ED Provider: Bebeto Gerard Dx/Rx/DC Orders Clinical Impression: Abdominal pain, Vomiting Instructions: ED Symptoms With Uncertain Cause Prescriptions: No Action zinc 50 mg tablet 50 mg PO DAILY RF: 0 calcium carbonate [Calcium 500] 500 mg calcium (1,250 mg) tablet 500 mg PO DAILY RF: 0 ascorbic acid (vitamin C) 500 mg capsule 500 mg PO DAILY RF: 0 cyanocobalamin (vitamin B-12) 1,000 mcg capsule 1,000 mcg PO DAILY RF: 0 hydroxychloroquine [Plaquenil] 200 mg tablet 200 mg PO DAILY RF: 0 meloxicam 15 MG tablet 15 mg PO DAILY RF: 0 Primary Care Provider: Rich Rivera Referrals: Rich Rivera MD [Primary Care Provider] - As soon as possible Disposition Disposition: Home, Self Care Discharge Date/Time: 08/28/20 17:30
[2020-08-28 14:44] LABS: Absolute Neutrophil Count 2.8 X10^3/uL (2.0-7.7); Basophil# 0.04 X10^3/uL; Basophil% 0.7 % (0-1); Eosinophil# 0.14 X10^3/uL; Eosinophils% 2.5 % (0-5); Hematocrit 45.1 % (37-47); Hemoglobin 14.6 g/dL (12.0-15.0); Lymphocyte % 39.5 % (19-41); Mean Corp Hgb Conc 32.4 g/dL (32-36); Mean Corpuscular Hgb 29.3 pg (27.0-32.0); Mean Corpuscular Volume 90.6 fL (81-99); Mean Platelet Vol. 10.7 fl (6.2-12.0); Monocyte# 0.37 X10^3/uL; Monocyte% 6.6 % (0-10); NRBC Flagged by Analyzer 0 % (0-5); Neutrophil # 2.81 X10^3/uL (2.7-7.7); Neutrophil % 50.5 % (47-70); Platelet Count 216 K/mm3 (150-450); RBC Distribution Width CV 12.7 % (11.6-14.6); RBC Distribution Width SD 42.1 fl (35.1-43.9); Red Blood Count 4.98 M/mm3 (4.2-5.4); White Blood Count 5.6 K/mm3 (4.4-11.0)
[2020-08-28 14:58] LABS: ALB/GLOB Ratio 1.1 RATIO (0.9-2.4); AST(SGOT) 18 U/L (15-37); Alanine Aminotransfer ALT/SGPT 24 U/L (13-56); Albumin, Serum 3.7 g/dL (3.2-5.0); Alkaline Phosphatase 57 U/L (45-117); Anion Gap 7 (5-15); BUN 10 mg/dL (7-18); BUN/Creat Ratio 13.8 RATIO (10-20); Calcium,Total 8.2 mg/dL (8.5-10.1); Chloride 105 mmol/L (98-107); Creatinine, Serum 0.72 mg/dL (0.55-1.02); EST Glomerular Filtration Rate 84 mL/min (>60); Est Glom Filt Rate - Afr Amer 102 mL/min (>60); Estimated Creatinine Clearance 52.05 ml/min; Globulin 3.4 g/dL (2.2-4.2); Glucose 85 mg/dL (74-106); Lipase 72 U/L (73-393); Potassium 3.8 mmol/L (3.5-5.1); Protein, Total 7.1 g/dL (6.4-8.2); Sodium Level 138 mmol/L (136-145); Troponin-I HS 5.2 pg/mL (3.0-53.7)
[2020-08-28 16:04] VITALS: BP 141/76; PULSE 56; RESP 15; O2SAT 98
[2020-08-28 17:23] VITALS: BP 141/78; PULSE 54; RESP 18; O2SAT 98
== END 2020-08-28 17:30 | disposition home or self-care (01) ==
PROVIDERS: Emergency Provider Emergency Medicine; PCP Internal Medicine
DX: R10.13 Epigastric pain (principal); R11.2 Nausea with vomiting, unspecified; M19.90 Unspecified osteoarthritis, unspecified site; M81.0 Age-related osteoporosis without current pathological fracture; Z87.19 Personal history of other diseases of the digestive system; Z87.440 Personal history of urinary (tract) infections; Z79.899 Other long term (current) drug therapy
CPT/HCPCS: 71045; 74177; 80053; 83690; 84484; 85025; 93005; 99283; Q9967; A4216

== ENCOUNTER 2020-09-17 11:40 | Emergency (ER) | payer MEDICARE, BC, SELFPAY ==
[2020-09-13 10:53] VITALS: BMI 21.6
[2020-09-17 11:41] VITALS: BP 130/98; PULSE 64; RESP 16; TEMP 36.6; O2SAT 96; BMI 22.2
--- NOTE | 2020-09-17 11:53 | EDS_ITS ---
HPI History of Present Illness Chief Complaint: Lower Extremity Injury Narrative Narrative: Patient presenting for evaluation secondary to pain and swelling of the right foot. Patient states this been going on for about 10 days. It is over the medial portion of the right midfoot. It was not associated with any sort of injury. Initially was thought that the patient had gout, she was started on medications and this did not seem to improve it. Patient's primary care recommended that she have her foot x-rayed. She denies any constitutional symptoms such as fevers chills or night sweats. She has never had any prior similar episodes in the past. Patient does not feel that this was provoked by any sort of specific footwear. Review of systems otherwise negative. [facility] Medical History Angiomyolipoma of kidney Arthritis Basal cell carcinoma (BCC) of back Diverticulitis Hemorrhoids History of UTI Melanoma in situ of back Osteoporosis Pain of right great toe Shoulder pain Home Medications meloxicam 15 mg PO DAILY 04/14/17 [History Last Taken Unknown] calcium carbonate 500 mg calcium (1,250 mg) tablet 500 mg PO DAILY 10/23/19 [History Last Taken Unknown] zinc 50 mg tablet 50 mg PO DAILY 10/23/19 [History Last Taken Unknown] ascorbic acid (vitamin C) 500 mg capsule 500 mg PO DAILY cap 10/28/19 [History Last Taken Unknown] cyanocobalamin (vitamin B-12) 1,000 mcg capsule 1,000 mcg PO DAILY 06/13/20 [History Last Taken Unknown] hydroxychloroquine 200 mg tablet 200 mg PO DAILY 06/13/20 [History Last Taken Unknown] ibuprofen 200 mg capsule 600 mg PO Q6H PRN cap 09/13/20 [History Last Taken Unknown] pantoprazole 20 mg tablet,delayed release 20 mg PO DAILY 30 Days #90 tab 09/13/20 [Rx Last Taken Unknown] Allergy/AdvReac Type Severity Reaction Status Date / Time betamethasone Allergy Severe Swelling Verified 09/17/20 11:43 erythromycin base Allergy Severe Swelling Verified 09/17/20 11:43 clindamycin Allergy Swelling Verified 09/17/20 11:43 ketoprofen [From Orudis] Allergy Unknown Verified 09/17/20 11:43 Penicillins Allergy Hives Verified 09/17/20 11:43 prednisone Allergy Hives Verified 09/17/20 11:43 Family History Grandmother Breast cancer, Onset Age: 50 Father Myocardial infarction Sister Asthma Grandfather CVA (cerebral vascular accident) Parkinsons disease Mother Parkinsons disease Osteoporosis Surgical History H/O: knee surgery Social History household members: spouse Smoking Status: Never smoker alcohol intake: never substance use type: does not use caffeine: Yes what type of physical activity do you participate in: walking seatbelt use: always do you feel safe at home: Yes additional social history: Robby- both are self employed ROS ROS ED Constitutional Constitutional ED: Denies fever(s) Cardiovascular Cardiovascular: Denies chest pain Respiratory/Chest Respiratory/Chest: Denies cough Musculoskeletal Musculoskeletal: Reports other Details: Right foot pain and swelling Integumentary Denies abscess or rash Neurologic Neurologic: Denies paresthesias or weakness EXAM Physical Exam Const Vital Signs: 09/17/20 11:41 Temperature 97.9 F Temperature Source Temporal Pulse Rate 64 Respiratory Rate 16 Blood Pressure 130/98 H Blood Pressure Mean 108 Pulse Ox 96 Oxygen Delivery Method Room Air Positive well nourished and well developed General Appearance ED: well developed and NAD HEENT normocephalic Eyes Eyes Narrative: EOMI Neck full ROM Resp normal respiratory effort Cardio regular rate and regular rhythm Cardio Narrative: 2+ DP pulses bilaterally symmetric Extremity Extremity Narrative: Examination of the patient's right foot shows some swelling at the base of the patient's first metatarsal with some soft tissue swelling and tenderness in that area. No fluctuance or induration, no skin changes. Normal range of motion of the foot. Neuro oriented x3 Sensorium / Orientation: alert Psych mental status grossly normal Skin Rashes: no rashes MDM MDM MDM Narrative Medical decision making narrative: Patient presented secondary to foot swelling. Three-view radiograph of the foot by my personal interpretation as well as radiology is negative. This does not appear to be infectious, I do not feel that this is a presentation of gout. Patient has this into prescription swelling over the medial portion of her foot that was atraumatic in onset. I do not believe that she requires antibiotics or further imaging at this point. I will give the patient a referral to podiatry. Patient was discharged in stable condition with continued supportive care. Radiography X-Ray: Read by ED Physician and No Fracture Diagnostic Testing: Radiology Impression Foot X-Ray 09/17/20 12:05 IMPRESSION: No acute bony abnormality or significant arthropathy. at 1248 Reported and signed by: Puneet Mcdonald MD Electronically Signed: Puneet Mcdonald MD at 12:47 EDT Tel , Service support , Discharge Plan Triage Chief Complaint: Lower Extremity Injury ED Provider: Tio Aranda Dx/Rx/DC Orders Clinical Impression: Localized swelling of right foot Instructions: ED Foot Sprain Prescriptions: No Action zinc 50 mg tablet 50 mg PO DAILY RF: 0 calcium carbonate [Calcium 500] 500 mg calcium (1,250 mg) tablet 500 mg PO DAILY RF: 0 ascorbic acid (vitamin C) 500 mg capsule 500 mg PO DAILY RF: 0 cyanocobalamin (vitamin B-12) 1,000 mcg capsule 1,000 mcg PO DAILY RF: 0 hydroxychloroquine [Plaquenil] 200 mg tablet 200 mg PO DAILY RF: 0 ibuprofen 200 mg capsule 600 mg PO Q6H PRN (Reason: Pain) RF: 0 pantoprazole 20 mg tablet,delayed release (DR/EC) 20 mg PO DAILY 30 Days Qty: 90 RF: 1 meloxicam 15 MG tablet 15 mg PO DAILY RF: 0 Primary Care Provider: Rich Rivera Referrals: Rich Rivera MD [Primary Care Provider] - Jason Sutton DPM [STAFF PHYSICIAN] - 3-5 Days Disposition Disposition: Home, Self Care
--- NOTE | 2020-09-17 12:05 | RAD_ITS ---
HISTORY: swelling EXAMINATION/TECHNIQUE: XR Foot Min 3 Views: COMPARISON: 10/27/16 FINDINGS: BONES/JOINTS: No acute fracture or dislocation. Preservation of the joint spaces. No sclerotic or destructive changes observed. SOFT TISSUES: No soft tissue swelling or gas. No radiopaque foreign body. RAD/Foot min 3 Views IMPRESSION: No acute bony abnormality or significant arthropathy. at 1248 Reported and signed by: Puneet Mcdonald MD Electronically Signed: Puneet Mcdonald MD at 12:47 EDT Tel , Service support ,
[2020-09-17 13:20] VITALS: RESP 18
== END 2020-09-17 13:21 | disposition home or self-care (01) ==
PROVIDERS: Emergency Provider Emergency Medicine; PCP Internal Medicine
DX: M79.89 Other specified soft tissue disorders (principal); M79.671 Pain in right foot; M10.9 Gout, unspecified; M81.0 Age-related osteoporosis without current pathological fracture; M19.90 Unspecified osteoarthritis, unspecified site; Z87.19 Personal history of other diseases of the digestive system; Z87.440 Personal history of urinary (tract) infections
CPT/HCPCS: 73630; 99282

== ENCOUNTER → 2021-12-01 | Outpatient (CLI) | payer MEDICARE, BC, SELFPAY ==
[2021-12-01 14:08] LABS: Mucous, Urine 0 SEEN /hpf (<or=2+); Red Blood Cells-Urine 0 SEEN /hpf (0-5)
[2021-12-01 15:14] LABS: Color, Urine Yellow (Yellow); Glucose, Dipstick Normal (Normal); Ketone-Dipstick Negative (Negative); Leukocyte Esterase-Dipstick 500 /ul (Negative); Nitrite-Dipstick Negative (Negative); Occult Blood-Urine Negative /ul (Negative); Protein-Dipstick Negative (Negative); Urine Bilirubin Dipstick Negative (Negative); Urine Clarity Clear (Clear); Urine Urobilinogen Normal (Normal)
[2021-12-01 15:36] LABS: Bacteria 1+ /hpf (None Seen); Squamous Epithelial Cells - UA 0-5 SEEN /hpf (5-10); White Blood Cells 0-5 SEEN /hpf (0-5)
== END | disposition home or self-care (01) ==
LOC: LABSPEC 14:07
PROVIDERS: PCP Internal Medicine; Referring Provider Physician Assistant; Visit Provider Physician Assistant
DX: R39.9 Unspecified symptoms and signs involving the genitourinary system (principal)
CPT/HCPCS: 81001; 87086; 87088

== ENCOUNTER → 2022-03-01 | Outpatient (CLI) | payer MEDICARE, BC, SELFPAY ==
[2022-03-01 18:13] LABS: Mucous, Urine 0 SEEN /hpf (<or=2+)
[2022-03-01 19:32] LABS: Color, Urine Red (Yellow); Glucose, Dipstick Normal (Normal); Ketone-Dipstick 5 mg/dl (Negative); Leukocyte Esterase-Dipstick 500 /ul (Negative); Nitrite-Dipstick Negative (Negative); Occult Blood-Urine 250 /ul (Negative); Protein-Dipstick 100 mg/dl (Negative); Urine Bilirubin Dipstick Negative (Negative); Urine Clarity Turbid (Clear); Urine Urobilinogen Normal (Normal)
[2022-03-01 21:28] LABS: Red Blood Cells-Urine > 100 SEEN /hpf (0-5)
[2022-03-01 21:29] LABS: Squamous Epithelial Cells - UA 10-25 SEEN /hpf (5-10); White Blood Cells >100 SEEN /hpf (0-5)
[2022-03-01 21:30] LABS: Bacteria 1+ /hpf (None Seen)
== END | disposition home or self-care (01) ==
PROVIDERS: PCP Internal Medicine; Visit Provider Physician Assistant Surgical
DX: R10.30 Lower abdominal pain, unspecified (principal); N39.0 Urinary tract infection, site not specified
CPT/HCPCS: 81001; 87077; 87086; 87088; 87186

== ENCOUNTER → 2022-06-25 | Outpatient (CLI) | payer MEDICARE, BC, SELFPAY | END | disposition home or self-care (01) | LOC: LABSPEC 14:35 | PROVIDERS: PCP Internal Medicine; Referring Provider Obstetrics & Gynecology; Visit Provider Obstetrics & Gynecology | DX: N39.0 Urinary tract infection, site not specified (principal) | CPT/HCPCS: 87086; 87088 ==

== ENCOUNTER → 2022-07-26 | Outpatient (CLI) | payer MEDICARE, BC, SELFPAY ==
--- NOTE | 2022-07-26 12:52 | US_ITS ---
EXAM: US RETROPERITONEAL LIMITED, RENAL CLINICAL INDICATION: UTI TECHNIQUE: Limited grayscale and color Doppler sonographic evaluation of the retroperitoneum was performed. COMPARISON: Abdomen and pelvis CT August 28, 2020, there was an earlier exam abdomen and pelvis CT April 14, 2017 also provided FINDINGS: RIGHT KIDNEY: 10.5 cm x 4.7 cm x 4 cm. No hydronephrosis. No shadowing calculus. No perinephric collection is demonstrated. There is an echogenic focus of 1.4 cm x 1.2 cm x 1.3 cm at the posterior upper right renal cortex, appearance typical of angiomyolipoma, and a stable hypodense nodule with some fat density is seen back to 2018. LEFT KIDNEY: 10.3 cm x 5.3 cm x 5.1 cm. No hydronephrosis. No shadowing calculus. No focal lesion. No perinephric collection is demonstrated. BLADDER: Bilateral ureteral jets are seen. No bladder wall thickening. US/Kidney and Bladder IMPRESSION: No hydronephrosis. No perinephric fluid. Echogenic focus typical of small angiomyolipoma in the right kidney. Electronically Signed: Torrie Flowers MD at 9:13 EDT ,
== END | disposition home or self-care (01) ==
LOC: US 12:47
PROVIDERS: PCP Internal Medicine; Referring Provider Urology; Visit Provider Urology
DX: N39.0 Urinary tract infection, site not specified (principal)
CPT/HCPCS: 76770

== ENCOUNTER 2022-09-12 09:00 | Outpatient (RCR) | payer MEDICARE, BC, SELFPAY ==
--- NOTE | 2022-08-09 13:21 | HP.PTEVAL_ITS ---
Patient's Visit Information ELSY MCCLURE is a 72 year old F referred to Physical Therapy by Dr. Desirae Arshad MD with a diagnosis of URINARY INCONTINENCE AND DYSPAREURIA. Date of Evaluation: 08/09/22 Physical Therapist: Alejandrina Cárdenas PT, Cert MDT - Visit Plan Frequency: 1x/Week Duration: 8-12 VISITS Plan: MANUAL THERAPY ( NEEDED) AND PF THERAPY FOR STRENGTHENING, LENGTHENING/RELAXATION AND ENDURANCE TRAINING. PELVIC FLOOR STRENGTHENING. URINARY RETENTION, URGE AND FREQUENCY EDUCATION. HEALTHY BLADDER HABIT EDUCATION. TRAINING IN COORDINATION OF PELVIC FLOOR MUSCULATURE WITH HIP AND CORE (TRANSVERSE ABDOMINUS) MUSCULATURE. POSTURE CORRECTION/STRENGTHENING. CORE STRENGTHENING. GET LE ROM, STRETCHING AND STRENGTHENING. TRAINING IN ABDOMINAL CAVITY PRESSURE MGMT WITH ADL'S. 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 Disability: NO. Present symptoms: URINARY LEAKING. Present since: FOR ABOUT 6 MONTHS. Pain Scale: NO. Is it getting better, worse or staying the same: STAYING THE SAME. Commenced as a result of: NO APPARENT REASON. Worse: WAITING TOO LONG TO GO TO THE BATHROOM. Better: NOTHING. Disturbed sleep: USUALLY ZERO. Previous history/Previous treatment: UTI;S MAY 2022. 3 UTI'S IN 6 WKS THEREFORE HAD EXAM BY DR. ARSHAD AND STARTED CRANBERRY CAPLETS 3 TIMES A DAY AND NO UTI'S SINCE. NO LONGER HAVING ANY PAIN. GOING TO FOLLOW UP WITH DR. ARSHAD IN 3 MONTHS. Coughing/sneezing/straining: SOMETIMES POSITIVE FOR UI. Gait: NORMAL. How long can you delay the need to urinate: 5 MINUTES OR SO. Prolapse (Falling out feeling): NO. Frequency of Urination: ABOUT 8 TIMES A DAY. Ability to stop urine flow: SOMETIMES. Ability to initiate urine stream: YES - NO DIFFICULTY. Dyspareunia: UNSURE AT THIS POINT - HAS NOT TRIED FOR ABOUT A YEAR. Bowel Incontinence: NO. Imaging: NONE RECENT EXCEPT US FOR KIDNEYS. PMH/Recent major surgery: ANGIOMYOLIPOMA OF KIDNEY (NO TREATMENT RECOMMENDED). ARTHRITIS. DIVERTICULITIS. HEMORRHOIDS. LICHEN SCLEROSIS (PATIENT REPORTS IT HAS CLEARED UP WITH OITMENT), OSTEOPOROSIS, TORN ROTATOR CUFFS, BASAL CELL CARCINOMA, MELANOMA AND H/O GET KNEE SURGERY. R FOOT FX. - Objective Sitting/Standing Posture: POOR. INCREASED KYPHOSIS. REDUCED LORDOSIS. NO RELEVANT LATERAL SHIFT. Active Correction of posture: NE. Other Observations: INDEP GAIT AND TRANSFERS. Sensory deficit: GET LE LIGTH TOUCH SENSATION IS GROSSLY INTACT AND SYMMETRICAL. ROM deficit: TIGHT GET HS'S, GASTROC SOLEUS COMPLEX'S, HIP ROTATORS AND HIP ADDUCTORS. Motor deficit: GET LE'S GROSSLY 4/5 WITH MMTING EXCEPT ANKLES 5/5. Dural Signs: NEGATIVE GET LE'S. Lumbar mvmt loss: flex - NIL. ext - MOD TO SEAMUS. R SG - MIN TO MOD. L SG - MIN TO MOD. Core strength: POOR. Palpation: PATIENT COMMUNICATES A GOOD UNDERSTANDING OF HOW TO CONTRACT HER PELVIC FLOOR AND STATES SHE CAN HOLD IT FOR 10 SECS BUT DOESN'T FEEL REAL STRONG. FUNCTIONAL SCREEN: Incontinence Impact Questionnaire Score: 4. Urogenital Distress Inventory Score: 6 - Goals Goal 1:: DECREASE URINARY LEAKAGE EPISODES TO ONE OR LESS PER DAY Goal Time Frame: 8-12 Weeks Goal 2:: PATIENT WILL SUCCESSFULLY DELAY VOIDING FOR 15 MINUTES WHEN URGENCY OCCURS Goal Time Frame: 4-6 Weeks Goal 3:: PATIENT WILL DEMONSTRATE/COMMUNICATE 10 CONSISTENT AND CONSECUTIVE 10 SECOND PELVIC FLOOR MUSCLE CONTRACTIONS TO DEMONSTRATE IMPROVED PELVIC FLOOR ENDURANCE. Goal Time Frame: 8-12 Weeks Goal 4:: PATIENT WILL BE ABLE TO HAVE SEXUAL RELATIONS WITH HER WITHOUT PAIN. Goal Time Frame: 6-8 Weeks Goal 5:: NORMALIZE VOIDING FREQUENCEY TO EVERY 3-4 HOURS. Goal Time Frame: 4-6 Weeks Goal 6:: PATIENT WILL BE INDEP WITH A HEP/HOME INSTRUCTIONS FOR CONTINUED IMPROVEMENT ONCE FORMAL PHYSICAL THERAPY CONCLUDES. Goal Time Frame: 8-12 Weeks - Anticipated Interventions Patient/Client Instruction: Educate patient on: Condition, Plan of Care, Risk Factors For the Purpose of:: To improve self management Therapeutic Exercise to Include: Strength training, Flexibilty training, Neuromotor development For the Purpose of:: To decrease pain, To increase ROM, To improve muscle performance and motor function, To increase tolerance to activity/condition/position, To improve ability of physical actions for home/community/work/leisure, To foster healthy habits Manual Therapy Techniques to Include: Soft tissue mobilization Comment: IF NEEDED. For the Purpose of:: To decrease pain, To decrease soft tissue restriction, To increase flexibility/ROM Thank you for the opportunity to evaluate your patient. For Medicare and Medicare HMO plans, please review the plan of care and approve it. It will need to be FAXED BACK to us at [phone] for Medicare purposes. For Medicare only, by signing this I certify the plan of care. Please let me know if there are questions or concerns regarding this plan of care. Physician Signature: Date:
--- NOTE | 2022-12-25 15:31 | HP.PTDCNRP_ITS ---
Patient Information Patient Information: ELSY MCCLURE was seen in my office for initial evaluation on 08/09/22. The following Plan of Care was established for this patient: POC Established Initial Frequency: 1x/Week Initial Duration: 8-12 VISITS Anticipated Interventions Patient/Client Instruction: Educate patient on: Condition, Plan of Care and Risk Factors For the Purpose of:: To improve self management Therapeutic Exercise to Include: Strength training, Flexibilty training and Neuromotor development For the Purpose of:: To decrease pain, To increase ROM, To improve muscle performance and motor function, To increase tolerance to activity/condition/position, To improve ability of physical actions for home /community/work/leisure and To foster healthy habits Manual Therapy Techniques to Include: Soft tissue mobilization Comment: IF NEEDED. For the Purpose of:: To decrease pain, To decrease soft tissue restriction and To increase flexibility/ROM Last Seen Last Seen: This patient was last seen in our office 09/12/22. Pertinent comments regarding their Physical therapy will appear below: This patient has not returned to Physical Therapy and is appropriate to return to MD for further follow-up as needed. At the time of her last attended visit she was improving and becoming independent with a home exercise program. At this point I will be discontinuing this patient from physical therapy. I would be happy to see this patient again in the future if found appropriate by the physician. Thank you! Alejandrina Cárdenas, PT, Cert MDT
== END 2022-09-12 19:00 | disposition home or self-care (01) ==
LOC: PT 09:00
PROVIDERS: PCP Internal Medicine; Referring Provider Urology; Visit Provider Urology
DX: R32 Unspecified urinary incontinence (principal); N94.10 Unspecified dyspareunia
CPT/HCPCS: 97162; 97530

== ENCOUNTER → 2023-04-03 | Outpatient (CLI) | payer MEDICARE, BC, SELFPAY ==
--- OUTSIDE RECORDS SUMMARY | 2023-04-03 12:20 | XMS RPT_ITS | CCD ---
Author Name Unknown Address [address] [place] [address] Organization [facility] Care Team Providers Care Burnisher Name Role Phone Iglesia BA, Bebeto Montana Unavailable [phone] JORGE MART Unavailable Unavailable JORGE MART Unavailable Unavailable LOLIS HARRIS Unavailable Unavailable Lolis Harris Unavailable Armando Forbes Unavailable Roseanna Gomez Unavailable Jade Santillan Unavailable Unavailable Samira Trevino Unavailable Unavailable Unavailable Unavailable Lolis Harris Attending Unavailable Lolis Harris Referring Unavailable Lolis Harris Consulting Unavailable Carmen Velez Unavailable Unavailable Bebeto Almanza MD Unavailable Allergies Allergy Classification Reported Allergen(s) Allergy Type Date of Onset Reaction(s) Facility (2 sources) clindamycin Drug Allergy 7 swelling/rash [facility] Work Phone: (2 sources) penicillin v Drug Allergy 7 swelling/rash [facility] Work Phone: (6 sources) predniSONE; Translations: [PredniSONE *CORTICOSTEROID S*] Drug Allergy 7 Swelling [facility] Work Phone: (3 sources) Clindamycin; Translations: [Clindamycin HCl *Anti-infective Agents - Misc.] Drug Allergy Swelling [facility] Work Phone: (3 sources) Ketoprofen; Translations: [Orudis *ANALGESICS - ANTI-INFLAMMATO RY*] Drug Allergy Swelling [facility] Work Phone: (3 sources) Penicillins; Translations: [Penicillins] allergy to substance [facility] Work Phone: Medications Completed/Discontinued Medications Medication Drug Class(es) Dates Sig (Normalized) Sig (Original) ascorbic acid 1000 mg oral tablet (3 sources) Vitamin C Start: 08-16-2015 take 1 tablet by mouth once daily VITAMIN C, 1000MG (Oral Tablet) 1 (one) Tablet qd for 0 days Quantity: 30 {Tablet} Refills: 3 Ordered: 16-Aug-2015 Scott Dawson MD Start : 16-Aug-2015 Active BONE DENSITY, [id number] (Oral Tablet) (3 sources) Start: 08-16-2015 take 4 tablets by mouth once daily BONE DENSITY, [id number] (Oral Tablet) 4 Tablet qd for 0 days Quantity: 120 {Tablet} Refills: 3 Ordered: 16-Aug-2015 Scott Dawson MD Start : 16-Aug-2015 Active Comments: osteomatrix from [facility] - ca, mag, vit d and more Problems Active Problems Problem Classification Problem Date Documented Da te Episodic/Chronic Diverticulosis and diverticulitis (3 sources) Diverticulitis of colon; Translations: [Diverticulitis, colon] 05-19-2018 Chronic Melanomas of skin (9 sources) Malignant melanoma; Translations: [Malignant melanoma of skin] 05-19-2018 Chronic Past or Other Problems Problem Classification Problem Date Documented Da te Episodic/Chronic Abdominal pain (20 sources) Abdominal pain; Translations: [Epigastric pain] Resolved: 11-10-2012 05-19-2018 Episodic Results Test Name Value Interpretation Reference Range Facil ity Vital Signs Date Time Vital Sign Value Performing Clinician Facility 07-17-2018 13:53-0400 BMI (Body Mass Index) 24.97 kg/m2 [facility] Work Phone: 07-17-2018 13:53-0400 Body Temperature 97.8 [degF] [facility] Work Phone: Encounters Encounter Date Encounter Type Care Provider Facility Start: 07-17-2018 End: 07-17-2018 Office outpatient visit 10 minutes [facility] Start: 05-19-2018 Patient encounter procedure [facility] Start: 05-19-2018 End: 05-19-2018 Office outpatient visit 15 minutes [facility] Start: 08-14-2017 End: 08-14-2017 Office outpatient visit 15 minutes [facility] Start: 05-20-2017 End: 05-20-2017 Office outpatient visit 10 minutes [facility] Start: 04-19-2017 End: 05-23-2017 Ambulatory JORGE John MART Facility: Start: 08-06-2016 End: 08-06-2016 Periodic preventive med est patient 65yrs& older [facility] Start: 06-25-2016 End: 06-25-2016 Office outpatient visit 15 minutes [facility] Start: 08-16-2015 End: 08-16-2015 Patient encounter procedure [facility] Start: 08-10-2015 End: 08-10-2015 Phone Encounter [facility] Start: 08-02-2015 End: 08-02-2015 Patient encounter procedure [facility] Start: 09-25-2013 End: 09-25-2013 Office outpatient visit 15 minutes [facility] Start: 09-21-2013 End: 09-21-2013 Office outpatient visit 25 minutes [facility] Start: 07-28-2013 End: 07-28-2013 Patient encounter procedure [facility] Start: 11-10-2012 End: 11-10-2012 Patient encounter procedure [facility] Start: 09-17-2011 End: 09-17-2011 Patient encounter procedure [facility] Start: 08-20-2011 End: 08-20-2011 Patient encounter procedure [facility] Start: 08-13-2011 End: 08-13-2011 Phone Encounter [facility] Start: 07-27-2011 End: 07-30-2011 Patient encounter procedure [facility] Start: 04-12-2011 End: 04-12-2011 Phone Encounter [facility] Start: 04-05-2011 End: 04-05-2011 Patient encounter procedure [facility] Procedures Date Procedure Procedure Detail Performing Clinician Start: 06-05-2021 End: 06-05-2021 BP scrn no perf at interval Bebeto Almanza MD Work Phone: Start: 06-05-2021 End: 06-05-2021 Calc BMI norm parameters Bebeto Becker Work Phone: Start: 06-05-2021 End: 06-05-2021 Current tobacco non-user cad cap copd pv dm Bebeto Almanza MD Work Phone: Start: 06-05-2021 End: 06-05-2021 Docrev cur meds by francheska Almanza MD Work Phone: Start: 06-05-2021 End: 06-05-2021 Osteoarthritis symptoms&funcjal status asses Bebeto Almanza MD Work Phone: Start: 06-05-2021 End: 06-05-2021 Pain doc pos and plan Bebeto Almanza MD Work Phone: Start: 06-05-2021 End: 06-05-2021 Patient encounter procedure Bebeto Almanza MD Work Phone: Start: 06-07-2017 End: 06-07-2017 Emergency Department Summary Comments: See Note; NOTES: [facility] Medical Records Department [address] [place] [address] Emergency Department Summary 06/07/17 1853 MR#: [id number] Acct: [id number] Name: ELSY MCCLURE Rep #: [id number] : 1950 67 From: Lucero Rey MD PCP: [facility]olis Harris DO Status: DEP ER - ER Visit Summary Date of Service: 06/07/17 Chief Complaint: Abdominal pain History of Present Illness: The patient is a 67 F with abdominal pain in the suprapubic area that started early this morning. It has been progressively worsening throughout the day. Patient states this pain feels like her prior rounds of diverticulitis. She has had no vomiting or diarrhea. She states her temperature was 99.6 this afternoon. Patient denies any prior abdominal surgeries. Her last treatment for diverticulitis was approximately 7 weeks ago. Patient states her symptoms were completely resolved until this morning. Physical Examination: Vital signs are unremarkable. Patient is afebrile. Head neck examination is normal. Is regular rate and rhythm. On lung sounds are clear. Abdomen is soft with minimal tenderness in the suprapubic region. There is no guarding or rebound. She has hypoactive but present bowel sounds throughout. Test Results: CBC and chemistry studies are unremarkable. Urinalysis shows 500 leukocyte esterase with 0-5 white cells and 5 epithelial cells. Emergency Department Course and Treatment: Patient just had CT imaging less than 2 months ago. I am reluctant to reimage her at this time. Patient will be treated with a course of Cipro and Flagyl. If she worsens over the weekend she will return for further treatment. I will speak with primary care physician to update them on her care and need for close follow-up. Treatment Plan: [] Disposition: Discharge Impression: Abdominal pain, probable diverticulitis This note was generated with [employer] dictation software. It may contain incorrect words, spelling, and punctuation that were not noted in review of the chart prior to signing ED Disposition - Plan for ED Patient: Chief Complaint: Abd Pain Referrals: Lolis Harris, DO [Primary Care Provider] - What to do if you have Problems For any increased pain, shortness of breath, bleeding, nausea or vomiting, chest pain, or any unexpected problems, contact your Primary Care Provider. Call [facility] ([phone]) or report to the closest Emergency Room. Call 911 if necessary. 06/07/17 5462 <Electronically signed by Lucero Rey MD> Date Lucero Rey MD Cosigner Signature (If Indicated): Date CC: Lolis Suh Start: 06-07-2017 End: 06-07-2017 Discharge Instruction Comments: See Note; NOTES: [facility] Medical Records Department [address] [place] [address] Discharge Instruction 06/07/17 1855 MR#: [id number] Acct: [id number] Name: ELSY MCCLURE Rep #: [id number] : 1950 From: Lucero Rey MD PCP: Lolis Harris DO Status: [facility] ER ED Disposition - Plan for ED Patient: Disposition: Home or Assisted Living Chief Complaint: Abd Pain Instructions: ED Diverticulitis Prescriptions: Ciprofloxacin [Cipro] 500 mg PO BID #14 tablet Metronidazole [Flagyl] 500 mg PO Q6H #40 tablet Referrals: Lolis Harris DO [Primary Care Provider] - 5-7 Days What to do if you have Problems For any increased pain, shortness of breath, bleeding, nausea or vomiting, chest pain, or any unexpected problems, contact your Primary Care Provider. Call [facility] ([phone]) or report to the closest Emergency Room. Call 911 if necessary. 06/07/171856 <Electronically signed by Lucero Rey MD> Date Lucero Rey MD Cosigner Signature (If Indicated): Date CC: Lolis Suh Start: 04-14-2017 End: 04-15-2017 Emergency Department Summary Comments: See Note; NOTES: [facility] Medical Records Department [address] [place] [address] Emergency Department Summary 04/14/17 1314 MR#: [id number] Acct: [id number] Name: ELSY MCCLURE Rep #: [id number] : 1950 From: Tio Jenkins MD PCP: Lolis Harris DO Status: [facility] ER - ER Visit Summary Date of Service: 04/14/17 Chief Complaint: Abdominal pain History of Present Illness: The patient is a 67 F presents to the emergency department with abdominal pain. The symptoms started over the past 24 hours. Patient describes a cramping, bandlike pain across her lower abdomen. She states that she has had the same symptoms before about a year ago. She was seen in the emergency department in [place] and diagnosed with diverticulitis. She has had no prior abdominal surgery. She does admit to some chills. She has had nausea without vomiting. She denies any change in bowel habits. She has not found anything that improves the symptoms. Physical Examination: Vital signs reviewed General: Well-nourished, well-developed Head: Normocephalic, atraumatic Eyes: Pupils equal and reactive, extraocular muscles intact Neck, supple, no lymphadenopathy Heart: Regular rate and rhythm Respiratory: No distress, clear bilaterally Abdomen: Soft, mildly tender in the suprapubic area into the left lower quadrant without guarding, nondistended, no peritoneal signs Back: Nontender Extremities: Nontender, no edema, no cords Skin: Normal color no rash Neuro: Alert and oriented, no focal or lateralizing deficits Test Results: [] Emergency Department Course and Treatment: The patient has an examination that is consistent with diverticulitis. She has no guarding or peritoneal signs. With her age, I did obtain a CT of her abdomen and pelvis. This does show acute diverticulitis of the sigmoid colon. There is no perforation or abscess. Her labs are unremarkable. She declined analgesics or antiemetics. On reevaluation she is resting comfortably. I did discuss options with the patient. She wants to attempt outpatient therapy and I feel this is reasonable. The patient will be started on Cipro and Flagyl. I did direct care counselor her on the importance of close outpatient follow-up. If she does have change in symptoms, I do want her to come back to the emergency department. She is comfortable with this plan of care. Treatment Plan: [] Disposition: Discharge Impression: 1. Acute diverticulitis This note was generated with [employer] dictation software. It may contain incorrect words, spelling, and punctuation that were not noted in review of the chart prior to signing ED Disposition - Plan for ED Patient: Chief Complaint: Abd Pain Instructions: ED Diverticulitis Prescriptions: Ciprofloxacin [Cipro] 500 mg PO BID #20 tab Metronidazole [Flagyl] 500 mg PO BID #20 tab Referrals: Lolis Harris DO [Primary Care Provider] - What to do if you have Problems For any increased pain, shortness of breath, bleeding, nausea or vomiting, chest pain, or any unexpected problems, contact your Primary Care Provider. Call [facility] ([phone]) or report to the closest Emergency Room. Call 911 if necessary. 04/14/17 2987 <Electronically signed by Tio Jenkins MD> Date Tio Jenkins MD Cosigner Signature (If Indicated): Date CC: Lolis Suh Start: 04-14-2017 End: 04-15-2017 Abdomen/Pelvis W IV Cont ONLY Comments: See Note; NOTES: [facility] Imaging Services [address] [place] [address] Abdomen/Pelvis W IV Cont ONLY MR#: [id number] Acct: [id number] Name: ELSY MCCLURE Rep #: [id number] : 1950 F 67 From: Cole Boudreaux MD PCP: Lolis Harris DO Status: REG ER Study: Abdomen/Pelvis W IV Cont ONLY Date of Exam: 04/14/17 Exam# [id number] Ordering Dr: Tio Jenkins MD STUDY: CT ABDOMEN AND PELVIS WITH CONTRAST REASON FOR EXAM: Female, 67 years old. Lower abdominal pain and diarrhea. History of diverticulitis. RADIATION DOSAGE (If Supplied By Facility): CTDIvol = ( 20.39 ) mGy, DLP = ( 1057.14 ) mGycm TECHNIQUE: Transaxial images were obtained from the dome of the diaphragm to the symphysis pubis without oral contrast. 100mL ml of Isovue 300 contrast was administered. Sagittal and coronal images were reconstructed. Individualized dose optimization techniques were used for this CT. COMPARISON: None. FINDINGS: Minimal dependent edema in the posterior lung bases. The visualized portions of the heart are within normal limits. Subcentimeter hypodensity in the right hepatic lobe may represent cyst. Liver ultrasound will help confirm if desired. Normal gallbladder and extrahepatic biliary system. Normal spleen. Normal pancreas. Normal bilateral adrenal glands. Small hypodense cyst in the right kidney. No stones or hydronephrosis. Normal left kidney. Prominent hiatal hernia. Normal small intestine. Multiple diverticula along the sigmoid colon with intramural thickening and inflammatory changes of the pericolic fat suggesting acute diverticulitis. No diverticular abscess. The appendix is visualized and appears normal. Normal abdominal aorta. Normal inferior vena cava. Normal retroperitoneum. Normal urinary bladder. Normal abdominal wall. Pronounced bilateral L5-S1 degenerative facet arthropathy. Moderately pronounced right L4-L5 degenerative facet arthropathy and moderate left L4-L5 degenerative facet arthropathy. Moderate bilateral L3-L4 degenerative facet arthropathy. CT/Abdomen/Pelvis W IV Cont ONLY IMPRESSION: 1. Acute diverticulitis of the sigmoid colon without diverticular abscess. 2. Small free fluid in the cul-de-sac. 3. Prominent hiatal hernia. 4. Subcentimeter hypodense cyst in the right hepatic lobe. Liver ultrasound with confirm if desired. 5. Nonenhancing hypodense cyst in the right kidney. 6. Pronounced bilateral L5-S1 degenerative facet arthropathy, moderately pronounced right L4-L5 degenerative facet arthropathy, moderate left L4-L5 degenerative facet arthropathy and moderate bilateral L3-L4 degenerative facet arthropathy. Electronically Signed: Cole Boudreaux MD at 14:30 EST , Service support , CC: Lolis Harris DO; Tio Jenkins MD Morphologist: Signed Lolis Harris Start: 08-13-2016 End: 08-15-2016 SCREENING MAMM (CAD), BILAT Comments: See Note; NOTES: [facility] Imaging Services [address] [place] [address] Verdana 4d SCREENING MAMM (CAD), BILAT MR#: [id number] Acct: [id number] Name: HENRIETTA MCCLURE Rep #: [id number] : 1950 F 66 From: Luis Carlos Galdamez MD PCP: Lolis Harris DO Status: REG CLI Study: SCREENING MAMM (CAD), BILAT Date of Exam: 08/13/16 Exam# [id number] Ordering Dr: Lolis Harris DO MAMMOGRAPHY - BILATERAL SCREENING REASON FOR EXAM: Female, 66 years old. Routine annual screening examination. PERTINENT HISTORY: TECHNIQUE: Digital bilateral breast conrad (3D mammographic acquisition) in the CC and MLO projections. 2-D mediolateral oblique (MLO) and craniocaudad (CC) views of both breasts were obtained. CAD: Full Field Digital Mammography with Computer Added Detection was performed. COMPARISON: Aug 09 2015 2:54PM and the study from Nov 17 2012 3:39PM FINDINGS: Breast Composition: The breasts are heterogeneously dense, which may obscure small masses. There are no dominant masses or suspicious calcifications. No other significant abnormalities are identified. HPBI/SCREENING MAMM (CAD), BILAT IMPRESSION: Stable bilateral screening mammogram. Yearly follow-up mammogram recommended. (A) ASSESSMENT CATEGORY: BIRADS Category 2: Benign. A letter regarding these results will be sent to the patient by the facility within 30 days. Approximately 10% of breast cancers are not detected by mammography. A normal mammogram should not delay biopsy of a clinically suspicious abnormality. [id number] Electronically Signed: Luis Carlos Galdamez MD at 14:53 EDT Tel , Service support , CC: Lolis Harris DO Morphologist: Signed Lolis Harris Work Phone: Start: 08-09-2015 End: 08-10-2015 Bilat Scrn Digital AND CAD Comments: See Note; NOTES: [facility] Imaging Services [address] [place] [address] Verdana 4d Bilat Scrn Digital AND CAD MR#: [id number] Acct: [id number] Name: HENRIETTA MCCLURE Rep #: [id number] : 1950 F 65 From: Zion Ervin MD PCP: Scott Dawson Status: REG CLI Study: Bilat Scrn Digital AND CAD Date of Exam: 08/09/15 Exam# [id number] Ordering Dr: Scott Dawson MAMMOGRAPHY - BILATERAL SCREENING REASON FOR EXAM: Female, 65 years old. Routine annual screening examination. PERTINENT HISTORY: Grandmother with breast cancer. TECHNIQUE: Digital bilateral breast tomosynthesis (3-D mammographic acquisition) in the CC and MLO projections. Synthesized 2-D images (C-View reconstruction from tomosynthesis acquisition) providing bilateral breast CC and MLO views. Mediolateral oblique (MLO) and craniocaudad (CC) views of both breasts were obtained. CAD: Full Field Digital Mammography with Computer Added Detection was performed. COMPARISON: Comparison is made with prior examination dated November 17, 2012 and August 14, 2011. FINDINGS: Breast Composition: There are scattered areas of fibroglandular density. There are no dominant masses or suspicious calcifications. No other significant abnormalities are identified. There has been no significant change since the prior study. IMPRESSION: Stable bilateral screening mammogram. Yearly follow-up mammogram recommended. (A) ASSESSMENT CATEGORY: BIRADS Category 1: Negative. A letter regarding these results will be sent to the patient by the facility within 30 days. Approximately 10% of breast cancers are not detected by mammography. A normal mammogram should not delay biopsy of a clinically suspicious abnormality. [id number] Electronically Signed: Zion Ervin MD at 16:01 EDT Tel [phone], Service support [phone], CC: Scott Dawson Morphologist: Signed Scott Dawson Work Phone: Start: 08-09-2015 End: 08-10-2015 Dexa Bone Density Study (HP) Comments: See Note; NOTES: [facility] Imaging Services [address] [place] [address] Verda 4d Dexa Bone Density Study () MR#: [id number] Acct: [id number] Name: HENRIETTA MCCLURE TERRI Rep #: [id number] : 1950 F 65 From: Zion Ervin MD PCP: Scott Dawson Status: REG CLI Study: Dexa Bone Density Study (HP) Date of Exam: 08/09/15 Exam# [id number] Ordering Dr: Scott Dawson STUDY: DUAL ENERGY X-RAY ABSORPTIOMETRY / DXA REASON FOR EXAM: Female, 65 years old. The patient is postmenopausal. TECHNIQUE: Bone Mineral Density (BMD) measurements of lumbar spine and bilateral hips were obtained. COMPARISON: Comparison is made with prior study dated August 14, 2011. FINDINGS: Lumbar Spine (L1-L4): g/cm2 (0.711) / T-score (-3.8) / Z-score (-2.2) Findings are suggestive of osteoporosis with a high fracture risk. Left Femur Total: g/cm2 (0.809) / T-score (-1.6) / Z-score (-0.3) Left Femoral Neck: g/cm2 (0.709) / T-score (-2.4) / Z-score (-0.8) Right Femur Total: g/cm2 (0.744) / T-score (-2.1) / Z-score (-0.8) Right Femoral Neck: g/cm2 (0.695) / T-score (-2.5) / Z-score (-0.9) The T-Scores on the most recent prior examination were: Lumbar Spine (L1-L4): There has been worsening of bone density since the previous examination. Left Femur Total: which represents an improvement of 5.5%. Right Femur Total: which represents a worsening of 1.7%. IMPRESSION: The patient is considered osteoporotic as outlined below according to World Dash Organization (WHO) criteria with a high fracture risk. There has been worsening of bone density since the previous examination. Reference Information: The T-score is the number of standard deviations above or below the standard which is normal for young adults at their peak bone mineral density. The World Health Organization (WHO) interprets the T-scores as follows: Above -1 Normal bone density Between -1 and -2.5 Osteopenia Equal to / or below -2.5 Osteoporosis As a practical clinical guideline, osteopenia may be graded as follows: Mild -1 through -1.5 Moderate -1.6 through -2.0 Severe -2.1 through -2.4 The Z-score is the number of standard deviations above or below age-matched controls. A Z-score of less than -1.5 would be considered abnormal. References: 1. NIH Osteoporosis and Related Bone Diseases http://www.osteo.org 2. International Society for Clinical Densitometry http://www.iscd.org 3. National Osteoporosis Foundation http://www.nof.org Electronically Signed: Zion Ervin MD at 15:00 EDT Tel [phone], Service support [phone], CC: Scott Dawson Morphologist: Signed Scott Dawson Work Phone: Start: 08-02-2015 End: 08-02-2015 Ecg routine ecg w/least 12 lds w/i&r [MEASUREMENTS ANALYSIS] Date of Test: 08/02/2015 09:03:07; Heart Rate: 60; MA Interval: 150; QRS: 86; QT Interval: 406; Corrected QT Interval (QTc): 406; P Wave Descanso: 29; QRS Wave [place]canso: 13; T Wave [place]o: 55; Blood Pressure: 118/74 [ECG DIAGNOSTIC STATEMENTS] Date of Test: 08/02/2015 09:03:07; Summary: Sinus Rhythm WITHIN NORMAL LIMITS Royce Sinclair Start: 11-08-2014 End: 11-09-2014 Emergency Department Summary Comments: See Note; NOTES: [facility] Medical Records Department [address] [facility] [place] [address] Emergency Department Summary MR#: [id number] Acct: [id number] Name: HENRIETTA MCCLURE TERRI Rep #: [id number] : 1950 64 From: Ava Kovacs MD PCP: Thea Cedeño DO Status: DEP ER DATE OF SERVICE: 11/07/2014 CHIEF COMPLAINT: Hemorrhoids. HISTORY: This is a 64-year-old female who has had hemorrhoids for years, but is having an acute problem with them and that they have been bleeding for a day or so. They have been much larger than normal, and she cannot seem to get the bleeding to stop. She has not had diarrhea or constipation. She has been fine otherwise. She started to have some lower abdominal pain associated with this, but the bleeding had started first. No vomiting or fever, and no other complaints. PHYSICAL EXAMINATION: VITAL SIGNS: Noted and unremarkable. She is well appearing, alert and appropriate. HEART: Rate is regular without murmurs. LUNGS: Clear. ABDOMEN: Normal on inspection, soft, with mild suprapubic tenderness. No guarding and no rebound. Rectal exam reveals multiple soft external hemorrhoids with no active bleeding. There is no thrombosis. There is no bleed per rectum at this time. No area of fluctuance or abscess. CLINICAL COURSE AND DECISION MAKING: The patient was reassured that there is no bleeding actively right now. Hemogram demonstrated normal hemoglobin of 12.7 and urinalysis was positive only for blood and RBCs, which I expect as contaminant from her previous bleeding. She did have a lot of dried blood around her peritoneum. There are no white blood cells, nitrates or anything else to suggest active infection and the patient was reassured. I prescribed her Anusol and suggested that she follow up with surgery to be evaluated for potential hemorrhoidectomy. DISPOSITION: Discharge. DIAGNOSIS: External hemorrhoids. MD Brandan Mccormick C: Bebeto Parekh MD T: NTS JOB: [id number] 11/08/14 0234 <Electronically signed by Ava Kovacs MD> Date Ava Kovacs MD Cosigner Signature (If Indicated): Date CC: Bebeto Parekh MD; Thea Cedeño DO Date Dictated: 11/07/142319 Date Transcribed: 11/07/142319 Morphologist: Signed Lolis Harris Start: 11-07-2014 End: 11-09-2014 Discharge Instruction Comments: See Note; NOTES: [facility] Medical Records Department [address] [place] [address] Discharge Instruction 11/07/142314 MR#: [id number] Acct: [id number] Name: HENRIETTA MCCLURE TERRI Rep #: [id number] : 1950 64 From: Ava Kovacs MD PCP: Thea Cedeño DO Status: REG ER ED Disposition - Plan for ED Patient: Chief Complaint: Abd Pain Instructions: Treating Hemorrhoids: Surgery, Treating Hemorrhoids: Removal Prescriptions: Hydrocortisone Acetate Cream [Anusol Hc] 1 applic TOPICAL TID PRN PRN #1 tube PRN Reason: Pain Referrals: Thae Cedeño DO [Primary Care Provider] - Bebeto Parekh MD [STAFF PHYSICIAN] - What to do if you have Problems For any increased pain, shortness of breath, bleeding, nausea or vomiting, chest pain, or any unexpected problems, contact your doctor. Call [facility] ([phone]) or report to the closest Emergency Room. Call 911 if necessary. 11/07/14 2319 <Electronically signed by Ava Kovacs MD> Date Ava Kovacs MD Cosigner Signature (If Indicated): Date CC: Thea Cedeño DO Lolis Harris Start: 09-23-2013 End: 09-25-2013 Gallbladder Comments: See Note; NOTES: [facility] Imaging Services [address] [address] Ultrasound Report MR#: [id number] Acct: [id number] Name: HENRIETTA MCCLURE TERRI Rep #: [id number] : 1950 F 63 From: Luis Carlos Galdamez MD PCP: Status: REG CLI Study: Gallbladder Date of Exam: 09/23/13 Exam# [id number] Ordering Dr: Roseanna Gomez STUDY: ULTRASOUND GALLBLADDER REASON FOR VISIT: Female, 63 years old. Right upper quadrant pain TECHNIQUE: Ultrasound evaluation of the gallbladder was performed with real-time and static ibarra-scale imaging. TECHNICAL QUALITY: Adequate. COMPARISON: April 11, 2011 FINDINGS: Gallbladder: Normal distended gallbladder. The gallbladder wall measures 2.4 mm. There is a negative sonographic Ferguson's sign. There is no pericholecystic fluid. There are no gallstones. Common Bile Duct (C.B.D.): The common bile duct measures 4.4 mm. Echogenic lesion is seen in the right kidney measures 1.4 cm most likely represent an angiomyolipoma. Further evaluation by CT scan may be warranted for definitive diagnosis. IMPRESSION: There is no evidence of gallstones. 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 Further evaluation by CT scan can be helpful. Electronically Signed: Reymundo Galdamez MD at 9:21 EDT Tel , Service support [phone], CC: Roseanna Gomez Morphologist: Signed Roseanna Gomez Work Phone: Dr Miguel Morales [place] [address] Dr Enrique Franks ear Plan of Treatment Date Care Activity Detail Author Start: 06-05-2021 End: 06-05-2021 Patient encounter procedure Appointment [facility] Work Phone: Start: 05-19-2018 Procedure Education Eprescribed prescriptions (G8553) [facility] Work Phone: Start: 05-19-2018 Provider Instructions for Treatment Follow up if no improvement or if symptoms worsen [facility] Work Phone: Start: 05-19-2018 Culture bct isol&prsmptv id isolate ea urine URINE NAOMIE CULTURE-IDENTIFICATN (63661) [facility] Work Phone: Start: 08-14-2017 Procedure Education Eprescribed prescriptions (G8553) [facility] Work Phone: Start: 08-14-2017 Provider Instructions for Treatment Follow up if no improvement or if symptoms worsen [facility] Work Phone: Start: 01-21-2017 End: 01-21-2017 Appointment Appointment [facility] Work Phone: Start: 08-06-2016 Procedure Education Eprescribed prescriptions (G8553) [facility] Work Phone: Start: 08-06-2016 Provider Instructions for Treatment [facility] Work Phone: Start: 06-25-2016 Provider Instructions for Treatment [facility] Work Phone: Start: 08-16-2015 Patient Education [facility] Work Phone: Start: 08-16-2015 Procedure Education Eprescribed prescriptions (G8553) [facility] Work Phone: Start: 08-16-2015 Provider Instructions for Treatment [facility] Work Phone: Start: 08-10-2015 Patient Education Osteoporosis in Women *: osteoporosis [facility] Work Phone: Start: 08-02-2015 Procedure Education Eprescribed prescriptions (G8553) [facility] Work Phone: Start: 08-02-2015 Provider Instructions for Treatment Follow up in 2 weeks [facility] Work Phone: Start: 09-25-2013 Provider Instructions for Treatment [facility] Work Phone: Start: 09-21-2013 Procedure Education Eprescribed prescriptions (G8553) [facility] Work Phone: Start: 09-21-2013 Provider Instructions for Treatment Follow up - Make appt after diagnostic tests see [facility] again on Saturday [facility] Work Phone: Start: 11-10-2012 Provider Instructions for Treatment [facility] Work Phone: Start: 11-10-2012 Hpv, dna, amp probe HPV automatic (38580) [facility] Work Phone: Start: 11-10-2012 Cytp cerv/vag auto thin layer prep mnl screen Thin prep Pap (05983) [facility] Work Phone: Start: 08-20-2011 Patient Education High Cholesterol (Hypercholesterolemia) *: blood [facility] Work Phone: Start: 08-20-2011 Provider Instructions for Treatment [facility] Work Phone: Start: 08-20-2011 Protein electrophoretic fractj&quantj serum [facility] Work Phone: Start: 08-20-2011 ALP enzyme act/vol ALKALINE PHOSPHATASE (30787) [facility] Work Phone: Start: 08-13-2011 Lipid panel LIPID PANEL (32705) [facility] Work Phone: Immunizations Immunization Date Immunization Notes Care Provider Nguyễn love 08-03-2015 pneumococcal conjuga te vaccine, 13 valent Lolis Harris [facility] Work Phone: 2011 zoster vaccine, live Lolis Harris [facility] Work Phone: Payers Date Payer Category Payer Medicare [id number] 2016 Unknown [id number] 2015 Medicare [id number] 2015 Unknown [id number] 1950 Unknown [id number] Unknown Unknown [id number] Social History Date Type Detail Facility Caffeine Use Never smoker [facility] Work Phone: Evaluation note Note Date & Type Note Facility Evaluation note There may be informa tion available, but it has not been provided by the sender. [facility] Work Phone: Instructions Note Date & Type Note Facility [facility] Work Phone: Summary Purpose Family History There may be information available, but it has not been provided by the sender. Unknown Family Member Name Dates Details Father Comments:cardiac -- had [place] Status:Active Maternal Grandfather Comments:parkinsons Status:Active Maternal Grandmother Status:Active Mother Comments:parkinsons Status:Active Paternal Grandfather Comments:stroke Status:Active Paternal Grandmother Comments:cancer -- breast Status:Active Sister 1 Comments:asthma Status:Active Unknown Family Member Name Dates Details Father Comments:cardiac -- had [place] Status:Active Maternal Grandfather Comments:parkinsons Status:Active Maternal Grandmother Status:Active Mother Comments:parkinsons Status:Active Paternal Grandfather Comments:stroke Status:Active Paternal Grandmother Comments:cancer -- breast Status:Active Sister 1 Comments:asthma Status:Active Unknown Family Member Name Dates Details Father Comments:cardiac -- had [place] Status:Active Maternal Grandfather Comments:parkinsons Status:Active Maternal Grandmother Status:Active Mother Comments:parkinsons Status:Active Paternal Grandfather Comments:stroke Status:Active Paternal Grandmother Comments:cancer -- breast Status:Active Sister 1 Comments:asthma Status:Active Advance Directives No Advanced Directives Records FoundNo Advanced Directives Records FoundNo Advanced Directives Records FoundThere may be information available, but it has not been provided by the sender. Instructions Name Dates Details BMI 24.0-24.9, adult : Patie nt Instructions Indication:BMI 24.0-24.9, adult BMI 24.0-24.9, adult : How t o access health information online Indication:BMI 24.0-24.9, adult BMI 24.0-24.9, adult : How t o access health information online - Detail Indication:BMI 24.0-24.9, adult Urinary frequency : How to a ccess health information online Indication:Urinary frequency Urinary frequency : How to a ccess health information online - Detail Indication:Urinary frequency Urinary frequency : Patient Instructions Indication:Urinary frequency Nonsmoker : How to access he alth information online Indication:Nonsmoker Nonsmoker : How to access he alth information online - Detail Indication:Nonsmoker Nonsmoker : Patient Instruct ions Indication:Nonsmoker BMI 25.0-25.9,adult : How to access health information online Indication:BMI 25.0-25.9,adult BMI 25.0-25.9,adult : How to access health information online - Detail Indication:BMI 25.0-25.9,adult BMI 25.0-25.9,adult : Patien t Instructions Indication:BMI 25.0-25.9,adult Well woman exam : How to acc ess health information online Indication:Well woman exam Well woman exam : How to acc ess health information online - Detail Indication:Well woman exam Well woman exam : Patient In structions Indication:Well woman exam Abnormal urine : Patient Ins tructions Indication:Abnormal urine Abdominal pain : Patient Ins tructions Indication:Abdominal pain Rash : Patient Instructions Indication:Rash Osteoporosis : Patient Instr uctions Indication:Osteoporosis Name Dates Details How to access health informa tion online Indication:Nonsmoker Start:17-Jul-2018 Instruction Type:Patient Education How to access health informa tion online - Detail Indication:Nonsmoker Start:17-Jul-2018 Instruction Type:Patient Education Patient Instructions Indication:Nonsmoker Start:17-Jul-2018 Instruction Type:Provider Instructions for Treatment Patient Instructions Indication:BMI 24.0-24.9, adult Start:19-May-2018 Instruction Type:Provider Instructions for Treatment How to access health informa tion online Indication:BMI 24.0-24.9, adult Start:19-May-2018 Instruction Type:Patient Education How to access health informa tion online - Detail Indication:BMI 24.0-24.9, adult Start:19-May-2018 Instruction Type:Patient Education How to access health informa tion online Indication:Urinary frequency Start:14-Aug-2017 Instruction Type:Patient Education How to access health informa tion online - Detail Indication:Urinary frequency Start:14-Aug-2017 Instruction Type:Patient Education Patient Instructions Indication:Urinary frequency Start:14-Aug-2017 Instruction Type:Provider Instructions for Treatment How to access health informa tion online Indication:Nonsmoker Start:20-May-2017 Instruction Type:Patient Education How to access health informa tion online - Detail Indication:Nonsmoker Start:20-May-2017 Instruction Type:Patient Education Patient Instructions Indication:Nonsmoker Start:20-May-2017 Instruction Type:Provider Instructions for Treatment How to access health informa tion online Indication:Nonsmoker Start:06-Aug-2016 Instruction Type:Patient Education How to access health informa tion online - Detail Indication:Nonsmoker Start:06-Aug-2016 Instruction Type:Patient Education Patient Instructions Indication:Nonsmoker Start:06-Aug-2016 Instruction Type:Provider Instructions for Treatment How to access health informa tion online Indication:Nonsmoker Start:25-Jun-2016 Instruction Type:Patient Education How to access health informa tion online - Detail Indication:Nonsmoker Start:25-Jun-2016 Instruction Type:Patient Education Patient Instructions Indication:Nonsmoker Start:25-Jun-2016 Instruction Type:Provider Instructions for Treatment How to access health informa tion online Indication:BMI 25.0-25.9,adult Start:16-Aug-2015 Instruction Type:Patient Education How to access health informa tion online - Detail Indication:BMI 25.0-25.9,adult Start:16-Aug-2015 Instruction Type:Patient Education Patient Instructions Indication:BMI 25.0-25.9,adult Start:16-Aug-2015 Instruction Type:Provider Instructions for Treatment How to access health informa tion online Indication:Well woman exam Start:02-Aug-2015 Instruction Type:Patient Education How to access health informa tion online - Detail Indication:Well woman exam Start:02-Aug-2015 Instruction Type:Patient Education Patient Instructions Indication:Well woman exam Start:02-Aug-2015 Instruction Type:Provider Instructions for Treatment Patient Instructions Indication:Abnormal urine Start:25-Sep-2013 Instruction Type:Provider Instructions for Treatment Patient Instructions Indication:Abdominal pain Start:21-Sep-2013 Instruction Type:Provider Instructions for Treatment Patient Instructions Indication:Rash Start:28-Jul-2013 Instruction Type:Provider Instructions for Treatment Patient Instructions Indication:Osteoporosis Start:10-Nov-2012 Instruction Type:Provider Instructions for Treatment Name Dates Details How to access health informa tion online Indication:Nonsmoker Start:17-Jul-2018 Instruction Type:Patient Education How to access health informa tion online - Detail Indication:Nonsmoker Start:17-Jul-2018 Instruction Type:Patient Education Patient Instructions Indication:Nonsmoker Start:17-Jul-2018 Instruction Type:Provider Instructions for Treatment Patient Instructions Indication:BMI 24.0-24.9, adult Start:19-May-2018 Instruction Type:Provider Instructions for Treatment How to access health informa tion online Indication:BMI 24.0-24.9, adult Start:19-May-2018 Instruction Type:Patient Education How to access health informa tion online - Detail Indication:BMI 24.0-24.9, adult Start:19-May-2018 Instruction Type:Patient Education How to access health informa tion online Indication:Urinary frequency Start:14-Aug-2017 Instruction Type:Patient Education How to access health informa tion online - Detail Indication:Urinary frequency Start:14-Aug-2017 Instruction Type:Patient Education Patient Instructions Indication:Urinary frequency Start:14-Aug-2017 Instruction Type:Provider Instructions for Treatment How to access health informa tion online Indication:Nonsmoker Start:20-May-2017 Instruction Type:Patient Education How to access health informa tion online - Detail Indication:Nonsmoker Start:20-May-2017 Instruction Type:Patient Education Patient Instructions Indication:Nonsmoker Start:20-May-2017 Instruction Type:Provider Instructions for Treatment How to access health informa tion online Indication:Nonsmoker Start:06-Aug-2016 Instruction Type:Patient Education How to access health informa tion online - Detail Indication:Nonsmoker Start:06-Aug-2016 Instruction Type:Patient Education Patient Instructions Indication:Nonsmoker Start:06-Aug-2016 Instruction Type:Provider Instructions for Treatment How to access health informa tion online Indication:Nonsmoker Start:25-Jun-2016 Instruction Type:Patient Education How to access health informa tion online - Detail Indication:Nonsmoker Start:25-Jun-2016 Instruction Type:Patient Education Patient Instructions Indication:Nonsmoker Start:25-Jun-2016 Instruction Type:Provider Instructions for Treatment How to access health informa tion online Indication:BMI 25.0-25.9,adult Start:16-Aug-2015 Instruction Type:Patient Education How to access health informa tion online - Detail Indication:BMI 25.0-25.9,adult Start:16-Aug-2015 Instruction Type:Patient Education Patient Instructions Indication:BMI 25.0-25.9,adult Start:16-Aug-2015 Instruction Type:Provider Instructions for Treatment How to access health informa tion online Indication:Well woman exam Start:02-Aug-2015 Instruction Type:Patient Education How to access health informa tion online - Detail Indication:Well woman exam Start:02-Aug-2015 Instruction Type:Patient Education Patient Instructions Indication:Well woman exam Start:02-Aug-2015 Instruction Type:Provider Instructions for Treatment Patient Instructions Indication:Abnormal urine Start:25-Sep-2013 Instruction Type:Provider Instructions for Treatment Patient Instructions Indication:Abdominal pain Start:21-Sep-2013 Instruction Type:Provider Instructions for Treatment Patient Instructions Indication:Rash Start:28-Jul-2013 Instruction Type:Provider Instructions for Treatment Patient Instructions Indication:Osteoporosis Start:10-Nov-2012 Instruction Type:Provider Instructions for Treatment Chief Complaint Chief Complaint Description Start Date right knee pain Preliminary chief co mplaint data, not yet signed by the author as of Additional Source Comments INFORMATION SOURCE (unrecogn ized section and content) DATE CREATED AUTHOR AUTHOR'S ORGANIZ ATION 05/19/2018 [facility] DATE CREATED AUTHOR AUTHOR'S ORGANIZ ATION 04/28/2021 [facility] Reason for Visit (unrecogniz ed section and content) FOR RECORDS PERTAINING TO PATIENTS WHO ARE OR HAVE BEEN ENROLLED IN A CHEMICAL DEPENDENCY/SUBSTANCEABUSE PROGRAM, SOME INFORMATION MAY BE OMITTED. This clinical summary was aggregated from multiple sources. Caution should be exercised in using it in the provision of clinical care. This summary normalizes information from multiple sources, and as a consequence, information in this document may materially change the coding, format and clinical context of patient data. In addition, data may be omitted in some cases. CLINICAL DECISIONS SHOULD BE BASED ON THE PRIMARY CLINICAL RECORDS. [facility] provides no warranty or guarantee of the accuracy or completeness of information in this document.
[2023-04-03 12:30] LABS: Absolute Lymphocyte Count 2.14 X10^3/uL (0.83-4.51); Absolute Neutrophil Count 2.9 X10^3/uL (2.0-7.7); Basophil# 0.05 X10^3/uL; Basophil% 0.9 % (0-1); Eosinophil# 0.14 X10^3/uL; Eosinophils% 2.5 % (0-5); Lymphocyte # 2.14 X10^3/ul (0.83-4.51); Lymphocyte % 37.9 % (19-41); Mean Corp Hgb Conc 32.6 g/dL (32-36); Mean Corpuscular Hgb 29.5 pg (27.0-32.0); Mean Corpuscular Volume 90.7 fL (81-99); Mean Platelet Vol. 11.1 fl (6.2-12.0); Monocyte# 0.39 X10^3/uL; Monocyte% 6.9 % (0-10); NRBC Flagged by Analyzer 0 % (0-5); Neutrophil # 2.92 X10^3/uL (2.7-7.7); Neutrophil % 51.6 % (47-70); Platelet Count 210 K/mm3 (150-450); RBC Distribution Width CV 13.2 % (11.6-14.6); RBC Distribution Width SD 44.6 fl (35.1-43.9); Red Blood Count 4.74 M/mm3 (4.2-5.4); White Blood Count 5.7 K/mm3 (4.4-11.0)
[2023-04-03 12:52] LABS: ALB/GLOB Ratio 1.2 RATIO (0.9-2.4); AST(SGOT) 23 U/L (15-37); Alanine Aminotransfer ALT/SGPT 25 U/L (13-56); Albumin, Serum 3.7 g/dL (3.2-5.0); Alkaline Phosphatase 60 U/L (45-117); Anion Gap 5 (5-15); BUN 14 mg/dL (7-18); BUN/Creat Ratio 14.8 RATIO (10-20); Calcium,Total 9.4 mg/dL (8.5-10.1); Chloride 104 mmol/L (98-107); Cholesterol 225 mg/dL (200); Creatinine, Serum 0.95 mg/dL (0.55-1.02); EST Glomerular Filtration Rate 61 mL/min (>60); Est Glom Filt Rate - Afr Amer 74 mL/min (>60); Globulin 3.2 g/dL (2.2-4.2); Glucose 93 mg/dL (74-106); High Density Lipoprotein 66 mg/dL; Potassium 3.8 mmol/L (3.5-5.1); Protein, Total 6.9 g/dL (6.4-8.2); Sodium Level 136 mmol/L (136-145); Triglycerides 135 mg/dL; Very Low Density Lipoprotein 27 mg/dL (5-40)
[2023-04-03 12:58] LABS: Vitamin D,25 Hydroxy 63.9 ng/mL
== END | disposition home or self-care (01) ==
LOC: BIMLAB 11:07
PROVIDERS: PCP Internal Medicine; Referring Provider Internal Medicine; Visit Provider Internal Medicine
DX: E78.5 Hyperlipidemia, unspecified (principal); M81.0 Age-related osteoporosis without current pathological fracture
CPT/HCPCS: 36415; 80053; 80061; 82306; 85025

== ENCOUNTER → 2023-08-26 | Outpatient (CLI) | payer MEDICARE, BC, SELFPAY ==
[2023-08-26 18:48] LABS: Bacteria 0 SEEN /hpf (None Seen); Mucous, Urine 0 SEEN /hpf (<or=2+); Red Blood Cells-Urine 0 SEEN /hpf (0-5)
[2023-08-26 18:56] LABS: Color, Urine Yellow (Yellow); Glucose, Dipstick Normal (Normal); Ketone-Dipstick Negative (Negative); Leukocyte Esterase-Dipstick 500 /ul (Negative); Nitrite-Dipstick Negative (Negative); Occult Blood-Urine 10 /ul (Negative); Protein-Dipstick Negative (Negative); Urine Bilirubin Dipstick Negative (Negative); Urine Clarity Clear (Clear); Urine Urobilinogen Normal (Normal); Urine pH 6.5 (5.0 - 8.0)
[2023-08-26 19:11] LABS: Squamous Epithelial Cells - UA 0-5 SEEN /hpf (5-10); White Blood Cells 5-10 SEEN /hpf (0-5)
== END | disposition home or self-care (01) ==
PROVIDERS: PCP Internal Medicine; Visit Provider Physician Assistant
DX: R30.0 Dysuria (principal)
CPT/HCPCS: 81001; 87086; 87088; 87186

== ENCOUNTER → 2023-09-12 | Outpatient (CLI) | payer MEDICARE, BC, SELFPAY ==
[2023-09-12 15:26] LABS: Mucous, Urine 0 SEEN /hpf (<or=2+); Red Blood Cells-Urine 0 SEEN /hpf (0-5); White Blood Cells 0 SEEN /hpf (0-5)
[2023-09-12 15:55] LABS: Glucose, Dipstick Normal (Normal); Ketone-Dipstick 5 mg/dl (Negative); Leukocyte Esterase-Dipstick Negative /ul (Negative); Nitrite-Dipstick Negative (Negative); Occult Blood-Urine Negative /ul (Negative); Protein-Dipstick Negative (Negative); Specific Gravity, Urine 1.005 (1.002-1.030); Urine Bilirubin Dipstick Negative (Negative); Urine Urobilinogen Normal (Normal)
[2023-09-12 15:57] LABS: Color, Urine Yellow (Yellow); Urine Clarity Clear (Clear)
[2023-09-12 16:22] LABS: Bacteria 1+ /hpf (None Seen); Squamous Epithelial Cells - UA 0-5 SEEN /hpf (5-10)
== END | disposition home or self-care (01) ==
LOC: LABSPEC 15:02
PROVIDERS: PCP Internal Medicine; Referring Provider Physician Assistant Surgical; Visit Provider Physician Assistant Surgical
DX: R30.0 Dysuria (principal)
CPT/HCPCS: 81001; 87086

== ENCOUNTER 2023-09-25 10:01 | Emergency (ER) | payer MEDICARE, BC, SELFPAY ==
[2023-09-25 10:02] VITALS: BP 128/81; PULSE 74; RESP 14; TEMP 36.6; O2SAT 98; BMI 24.5
--- NOTE | 2023-09-25 10:15 | CT_ITS ---
STUDY: CT ABDOMEN AND PELVIS WITHOUT CONTRAST REASON FOR EXAM: Female, 73 years old. Left flank pain. Possible diverticulitis. RADIATION DOSAGE (If Supplied By Facility): CTDIvol = ( 7.83 ) mGy, DLP = ( 411.00 ) mGycm TECHNIQUE: Transaxial images were obtained from the dome of the diaphragm to the symphysis pubis without oral contrast, and without intravenous contrast. Sagittal and coronal images were reconstructed. Individualized dose optimization techniques were used for this CT. COMPARISON: Comparison is made with prior study dated August 28, 2020. FINDINGS: The visualized lung bases are unremarkable. The visualized portions of the heart are within normal limits. Stable 9 mm cyst in the lateral midportion of the right lobe of the liver. Normal gallbladder and extrahepatic biliary system. Normal spleen. Normal pancreas. Normal bilateral adrenal glands. Stable fat-containing 1 cm hypodensity in the medial posterior cortex of the right kidney. Normal left kidney. Normal visualized stomach. Normal small intestine. There are multiple colonic diverticula consistent with diverticulosis. The appendix is visualized and appears normal. There is scattered atherosclerotic calcification of the abdominal aorta, without a demonstrated aneurysm. Normal inferior vena cava. Normal retroperitoneum. Normal urinary bladder. Normal abdominal wall. There are mild degenerative changes of the visualized lumbar spine. CT/Abdomen/Pelvis without Cont IMPRESSION: Stable subcentimeters cyst in the right lobe of liver as well as a 1 cm hypodensity in the medial posterior cortex of the right kidney. Diffuse sigmoid diverticulosis with no radiographic evidence of diverticulitis at this time. Electronically Signed: Zion Ervin MD at 10:56 EDT ,
--- NOTE | 2023-09-25 10:15 | EX.ED.DYSGE1 ---
HPI History of Present Illness Chief Complaint: Abd Pain Informant: patient and spouse/S.O. Narrative Narrative: 73-year-old female presenting to the emergency room out of concern for diverticulitis. Patient states about 2 weeks ago she went to urgent care because she was experiencing lower abdominal discomfort some constipation and urinary frequency. It was felt that she may have a bladder infection but states I did not. She states that she was not given antibiotics. After reviewing the chart I see that she had started taking some nitrofurantoin that she had leftover from prior infection was instructed to keep taking that. She saw Dr. Reeves on Saturday was recommended that she may need some imaging to see if she has diverticulitis. Yesterday she drank mostly fluids. She notes the lower abdominal pain has resolved but she has been left with a pain in the left flank. She states that pain is worse with movement. Pain in the left flank was also present 2 weeks ago when she began her illness. She has had diverticulitis intermittently since 2019 but it has been a couple years since she last had a flare. She is leaving next week for 4-week location and call her primary care doctor's office to be seen but they did not have any immediate openings. No reported fevers. No blood in stool. No history of kidney stones. No prior abdominal surgeries PFSH PFSH Medical History Hyperlipidemia Health care maintenance Torn rotator cuff Pain of right great toe Diverticulitis Shoulder pain Hemorrhoids History of UTI Arthritis Angiomyolipoma of kidney Melanoma in situ of back Osteoporosis Basal cell carcinoma (BCC) of back Home Medications ?Medication ?Instructions ?Recorded ?Last Taken ?Type meloxicam 15 mg tablet 15 mg PO DAILY 04/14/17 Unknown History calcium carbonate (Calcium 500) 500 mg PO DAILY 10/23/19 Unknown History zinc 50 mg tablet 50 mg PO DAILY 10/23/19 Unknown History ascorbic acid (vitamin C) 500 mg 500 mg PO DAILY 10/28/19 Unknown History capsule cyanocobalamin (vitamin B-12) 1,000 mcg PO DAILY 06/13/20 Unknown History 1,000 mcg capsule hydroxychloroquine 200 mg tablet 200 mg PO DAILY 06/13/20 Unknown History (Plaquenil) ibuprofen 200 mg capsule 600 mg PO Q6H PRN Pain 09/13/20 Unknown History denosumab 60 mg/mL subcutaneous 60 mg subcut [id number] #1 mL 03/20/22 Unknown Rx syringe (Prolia) clobetasol 0.05 % topical ointment 1 applic topical QHS #30 grams 06/25/22 Unknown Rx cranberry fruit concentrate 250 mg 250 mg PO TID 06/25/22 Unknown History chewable tablet (Azo Cranberry) pantoprazole 20 mg tablet,delayed 20 mg PO DAILY #90 tabs 04/15/23 Unknown Rx release nitrofurantoin 50 mg capsule mg PO 09/12/23 Unknown History sulfamethoxazole 800 1 tab PO BID #20 TABLETS 09/25/23 Unknown Rx mg-trimethoprim 160 mg tablet Allergy/AdvReac Type Severity Reaction Status Date / Time betamethasone Allergy Severe Swelling Verified 09/25/23 10:02 erythromycin base Allergy Severe Swelling Verified 09/25/23 10:02 clindamycin Allergy Swelling Verified 09/25/23 10:02 ketoprofen (From Orudis) Allergy Unknown Verified 09/25/23 10:02 Penicillins Allergy Hives Verified 09/25/23 10:02 prednisone Allergy Hives Verified 09/25/23 10:02 Family History Grandmother Breast cancer, Onset Age: 50 Father Myocardial infarction Sister Asthma Grandfather CVA (cerebral vascular accident) Parkinsons disease Mother Parkinsons disease Osteoporosis Surgical History H/O: knee surgery Social History household members: spouse Smoking Status: Never smoker alcohol intake: never substance use type: does not use caffeine: Yes what type of physical activity do you participate in: walking seatbelt use: always do you feel safe at home: Yes additional social history: Robby- both are self employed ROS ROS ED Constitutional Constitutional ED: Denies chills or weight loss Eyes Eyes: Denies change in vision or diplopia ENT ENT ED: Denies ear pain, rhinorrhea or sore throat Cardiovascular Cardiovascular: Denies chest pain, orthopnea, palpitations or racing heartbeat Respiratory/Chest Respiratory/Chest: Denies cough, dyspnea or orthopnea Gastrointestinal Gastrointestinal: Reports abdominal pain and constipation; Denies diarrhea, nausea or vomiting Genitourinary Genitourinary ED: Reports urinary frequency; Denies dysuria or hematuria Musculoskeletal Musculoskeletal: Reports back pain; Denies arthralgias or myalgias Integumentary Denies abscess or rash Neurologic Neurologic: Denies headache(s) or weakness Psychiatric Psychiatric: Denies anxiety, depression, suicidal ideation or suicidal thoughts Endocrine Endocrinology: Denies polydipsia, polyphagia or polyuria Allergic/Immunologic Allergic/Immunologic ED: Denies mouth swelling, tongue swelling or urticaria EXAM Physical Exam Const Vital Signs: 09/25/23 10:02 Temperature 98 F Temperature Source Temporal Pulse Rate 74 Respiratory Rate 14 Blood Pressure 128/81 H Blood Pressure Mean 96 Pulse Ox 98 Oxygen Delivery Method Room Air Positive well nourished and well developed General Appearance ED: well developed HEENT Reports normocephalic, head/scalp atraumatic and moist mucous membranes Eyes PERRL and EOMs intact bilaterally Neck no lymphadenopathy, supple and no JVD Resp normal respiratory effort and clear to auscultation bilaterally Cardio regular rate, regular rhythm and no murmurs GI normal to inspection, nondistended, normoactive bowel sounds and non-tender Palpation: soft Back/Spine normal ROM Back/Spine Narrative: Patient has tenderness to palpation just inferior to the lower ribs on the left. No rashes noted. Extremity normal to inspection General Extremety ED: Negative for edema General Extremity: Negative for edema Neuro oriented x3 and CN's II-XII intact bilaterally Sensorium / Orientation: alert Motor Exam: strength 5/5 throughout Psych mental status grossly normal Mood & Affect: Negative for depressed or tearful Skin no rashes or lesions noted and no wounds MDM MDM MDM Narrative Medical decision making narrative: Differential diagnosis includes diverticulitis colitis diverticular abscess bowel perforation volvulus UTI pyelonephritis kidney stone muscle strain sprain Urinalysis 50-100 white cells 1+ bacteria 0-5 squamous cells 0-5 red cells positive leukocyte Estrace negative nitrates. This was sent for culture. CT abdomen pelvis demonstrates some sigmoid diverticulosis but no obvious diverticulitis abscess volvulus or obstruction at this time. Please see radiologist read for full details. Patient will be started on Bactrim. Prior urinary culture grew out E. coli. History & Record Review Discussion w/independent historian: Patient and Significant other Lab Data Attestation: I reviewed the patient's lab results. Labs: Laboratory Results - last 24 hr 09/25/23 10:20 Urine Color Yellow Urine Clarity Sl. Cloudy Urine pH 7.0 Ur Specific [place] 1.010 Urine Protein 15 H Urine Glucose (UA) Normal Urine Ketones Negative Urine Occult Blood 25 H Urine Nitrite Negative Urine Bilirubin Negative Urine Urobilinogen Normal Ur Leukocyte Esterase 500 H Urine RBC 0-5 SEEN Urine WBC 50-100 SEEN Ur Squamous Epith Cells 0-5 SEEN Urine Bacteria 1+ Urine Mucus RARE Radiography Diagnostic Testing: Clinical Impression(s) from Imaging Studies Abdomen/Pelvis CT 09/25/23 10:15 IMPRESSION: Stable subcentimeters cyst in the right lobe of liver as well as a 1 cm hypodensity in the medial posterior cortex of the right kidney. Diffuse sigmoid diverticulosis with no radiographic evidence of diverticulitis at this time. Electronically Signed: Zion Ervin MD at 10:56 EDT , Discharge Plan Triage Chief Complaint: Abd Pain ED Provider: Bebeto Gerard Dx/Rx/DC Orders Clinical Impression: Acute pyelonephritis, Back pain Instructions: ED Pyelonephritis, Female (Adult) Prescriptions: New sulfamethoxazole-trimethoprim 800-160 mg tablet 1 tab PO BID Qty: 20 0RF No Action zinc 50 mg tablet 50 mg PO DAILY calcium carbonate [Calcium 500] 500 mg calcium (1,250 mg) tablet 500 mg PO DAILY ascorbic acid (vitamin C) 500 mg capsule 500 mg PO DAILY cyanocobalamin (vitamin B-12) 1,000 mcg capsule 1,000 mcg PO DAILY hydroxychloroquine [Plaquenil] 200 mg tablet 200 mg PO DAILY ibuprofen 200 mg capsule 600 mg PO Q6H PRN (Reason: Pain) Azo Cranberry 250 mg tablet,chewable 250 mg PO TID clobetasol 0.05 % ointment 1 applic topical QHS Qty: 30 3RF Rx Instructions: apply thin layer; massage gently into affected area nightly x 6 weeks then 1-2x weekly nitrofurantoin 50 mg capsule PO meloxicam 15 MG tablet 15 mg PO DAILY Patient Comments: take 1 tablet by mouth once daily Prolia 60 mg/mL syringe 60 mg subcut [id number] Qty: 1 0RF pantoprazole 20 mg tablet,delayed release (DR/EC) 20 mg PO DAILY Qty: 90 1RF Primary Care Provider: Rich Rivera Referrals: Rich Rivera MD [Primary Care Provider] - 1 Week if not improving Print Language: Vincentian Disposition Disposition: Home, Self Care
[2023-09-25 10:29] LABS: Color, Urine Yellow (Yellow); Glucose, Dipstick Normal (Normal); Ketone-Dipstick Negative (Negative); Leukocyte Esterase-Dipstick 500 /ul (Negative); Nitrite-Dipstick Negative (Negative); Occult Blood-Urine 25 /ul (Negative); Protein-Dipstick 15 mg/dl (Negative); Urine Bilirubin Dipstick Negative (Negative); Urine Clarity Sl. Cloudy (Clear); Urine Urobilinogen Normal (Normal)
[2023-09-25 10:37] LABS: White Blood Cells 50-100 SEEN /hpf (0-5)
[2023-09-25 10:38] LABS: Bacteria 1+ /hpf (None Seen); Mucous, Urine RARE /hpf (<or=2+); Red Blood Cells-Urine 0-5 SEEN /hpf (0-5); Squamous Epithelial Cells - UA 0-5 SEEN /hpf (5-10)
[2023-09-25 11:44] VITALS: BP 127/63; PULSE 72; RESP 15; TEMP 36.4; O2SAT 99
== END 2023-09-25 11:45 | disposition home or self-care (01) ==
PROVIDERS: Emergency Provider Emergency Medicine; PCP Internal Medicine; Visit Provider Emergency Medicine
DX: R10.9 Unspecified abdominal pain (principal); N10 Acute pyelonephritis; M54.9 Dorsalgia, unspecified; E78.5 Hyperlipidemia, unspecified; Z85.820 Personal history of malignant melanoma of skin
CPT/HCPCS: 74176; 81001; 87077; 87086; 87088; 99282; A4216

== ENCOUNTER 2023-10-16 18:33 | Emergency (ER) | payer MEDICARE, BC, SELFPAY ==
[2023-10-16 18:34] VITALS: BP 125/78; PULSE 73; RESP 17; TEMP 36.4; O2SAT 96; BMI 24.7
--- NOTE | 2023-10-16 19:19 | RAD_ITS ---
STUDY: X-RAY - PELVIS AND LEFT HIP REASON FOR EXAM: Female, 73 years old. Pain TECHNIQUE: 3 views of the pelvis and hip. COMPARISON: None. FINDINGS: There is a normal bowel gas pattern. Normal visualized soft tissue structures. Normal bilateral iliac wings, sacroiliac joints and visualized sacrum. Normal bilateral superior and inferior pubic rami. Normal pubic symphysis. Normal bilateral ischial tuberosities. Normal visualized femoral head. There is osteoarthritic spur formation of the acetabular rim. Normal hip joint. There is no acute fracture. RAD/HIP, UNI W/ Pelvis 2-3 Views IMPRESSION: Mild degenerative change. No fracture. Electronically Signed: Musa Shah MD at 20:19 EDT ,
--- NOTE | 2023-10-16 20:42 | ED.VIS.LOWEX ---
HPI History of Present Illness HPI Narrative: Patient presents with pain in her left hip that began yesterday. Patient states it is gradually gotten worse. Patient states it is mainly over the posterior aspect of her left hip. Patient describes the pain as sharp. Patient states she has been doing a lot of lifting and moving things to her RV as they are getting ready to go on vacation. Patient denies any trauma or injury. Patient denies any paresthesias or weakness. Patient denies any radiation of the pain to her lower leg. Patient states her pain does radiate up into her back. Chief Complaint: Lower Extremity Injury Informant: patient Onset/Context/Timing Onset: Yesterday Context: Gradual Onset Timing: Continuous Quality of Pain: Sharp Location: Posterior left hip and left lumbar paraspinal area Worsened by: Exertion Relieved by: Nothing Associated Symptoms Associated Symptoms: Negative for Parasthesia, Weakness or Loss of Funtion [facility] Medical History Hyperlipidemia Health care maintenance Torn rotator cuff Pain of right great toe Diverticulitis Shoulder pain Hemorrhoids History of UTI Arthritis Angiomyolipoma of kidney Melanoma in situ of back Osteoporosis Basal cell carcinoma (BCC) of back Home Medications ?Medication ?Instructions ?Recorded ?Last Taken ?Type meloxicam 15 mg tablet 15 mg PO DAILY 04/14/17 Unknown History calcium carbonate (Calcium 500) 500 mg PO DAILY 10/23/19 Unknown History zinc 50 mg tablet 50 mg PO DAILY 10/23/19 Unknown History ascorbic acid (vitamin C) 500 mg 500 mg PO DAILY 10/28/19 Unknown History capsule cyanocobalamin (vitamin B-12) 1,000 mcg PO DAILY 06/13/20 Unknown History 1,000 mcg capsule hydroxychloroquine 200 mg tablet 200 mg PO DAILY 06/13/20 Unknown History (Plaquenil) ibuprofen 200 mg capsule 600 mg PO Q6H PRN Pain 09/13/20 Unknown History denosumab 60 mg/mL subcutaneous 60 mg subcut [id number] #1 mL 03/20/22 Unknown Rx syringe (Prolia) clobetasol 0.05 % topical ointment 1 applic topical QHS #30 grams 06/25/22 Unknown Rx cranberry fruit concentrate 250 mg 250 mg PO TID 06/25/22 Unknown History chewable tablet (Azo Cranberry) nitrofurantoin 50 mg capsule mg PO 09/12/23 Unknown History sulfamethoxazole 800 1 tab PO BID #20 TABLETS 09/25/23 Unknown Rx mg-trimethoprim 160 mg tablet pantoprazole 20 mg tablet,delayed 20 mg PO DAILY #90 tabs 10/02/23 Unknown Rx release hydrocodone-acetaminophen 5-325mg 1 tab PO Q6H PRN PRN Pain 3 days 10/16/23 Unknown Rx 5mg-325mg #10 TABLETS Allergy/AdvReac Type Severity Reaction Status Date / Time betamethasone Allergy Severe Swelling Verified 10/16/23 18:34 erythromycin base Allergy Severe Swelling Verified 10/16/23 18:34 clindamycin Allergy Swelling Verified 10/16/23 18:34 ketoprofen (From Orudis) Allergy Unknown Verified 10/16/23 18:34 Penicillins Allergy Hives Verified 10/16/23 18:34 prednisone Allergy Hives Verified 10/16/23 18:34 Family History Grandmother Breast cancer, Onset Age: 50 Father Myocardial infarction Sister Asthma Grandfather CVA (cerebral vascular accident) Parkinsons disease Mother Parkinsons disease Osteoporosis Surgical History H/O: knee surgery Social History household members: spouse Smoking Status: Never smoker alcohol intake: never substance use type: does not use caffeine: Yes what type of physical activity do you participate in: walking seatbelt use: always do you feel safe at home: Yes additional social history: 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 ROS ROS ED Constitutional Constitutional ED: Denies chills or fever(s) Eyes Eyes: Denies blurry vision or change in vision ENT ENT ED: Denies rhinorrhea or sore throat Cardiovascular Cardiovascular: Denies chest pain or palpitations Respiratory/Chest Respiratory/Chest: Denies cough or dyspnea Gastrointestinal Gastrointestinal: Denies nausea or vomiting Genitourinary Genitourinary ED: Denies dysuria or hematuria Musculoskeletal Musculoskeletal: Denies back pain or neck pain Integumentary Denies abscess or rash Neurologic Neurologic: Denies headache(s) or weakness Allergic/Immunologic Allergic/Immunologic ED: Denies mouth swelling or urticaria EXAM Physical Exam Const Vital Signs: 10/16/23 18:34 Temperature 97.6 F L Temperature Source Temporal Pulse Rate 73 Respiratory Rate 17 Blood Pressure 125/78 H Blood Pressure Mean 93 Pulse Ox 96 Oxygen Delivery Method Room Air Positive well nourished and well developed General Appearance ED: well developed and NAD HEENT Reports moist mucous membranes Neck full ROM and supple GI non-tender and non-distended Palpation: soft Back/Spine no CVA tenderness Back/Spine Narrative: There is tenderness and spasm of the left lumbar paraspinal muscles. There is no midline tenderness. There is no bony crepitance or step-off noted. There is good range of motion. Extremity Extremity Narrative: There is tenderness to palpation over the posterior aspect of the left hip over the piriformis muscle and gluteal muscles. There is some pain with resistive abduction of the left hip. There is pain with external rotation of the left hip. There is no deformity noted. There is no bony crepitance or step-off. There is no tenderness over the iliac crest or ASIS. Sensation was intact to light touch bilaterally in the lower extremities. Pedal pulses are equal bilaterally. There is no calf tenderness or edema noted. Strength is 5/5 bilaterally in the lower extremities. Neuro oriented x3, CN's II-XII intact bilaterally, moves all extremities and no sensory deficits noted Sensorium / Orientation: alert Motor Exam: strength 5/5 throughout Psych mental status grossly normal MDM MDM MDM Narrative Medical decision making narrative: Differential diagnosis includes muscle strain and occult fracture. X-rays of the left hip will be obtained to assess for occult fracture. Radiography Diagnostic Testing: Clinical Impression(s) from Imaging Studies Hip/Pelvis X-Ray 10/16/23 19:19 IMPRESSION: Mild degenerative change. No fracture. Electronically Signed: Musa Shah MD at 20:19 EDT , X-rays of the left hip were obtained. There are 3 views. On my independent interpretation, there is no acute fracture noted. There are some mild degenerative changes noted. There is no dislocation noted. Radiologist also interpreted the x-rays and agrees. Treatment and Re-Evaluation Narrative: Patient was advised that this is most likely muscular strain. Patient was advised that this is most likely from her lifting and carrying things. Patient was instructed to use ice to the area. Patient is currently taking meloxicam. Patient was given a prescription for a short course of Yulan to take. Patient was instructed to use ice to the area. Patient was instructed to follow-up with her primary care physician in 5 to 7 days for reevaluation. Patient understood and was agreeable with the plan. All questions were answered. Discharge Plan Triage Chief Complaint: Lower Extremity Injury ED Provider: Skyler Jha Dx/Rx/DC Orders Clinical Impression: Muscle strain of left hip, Acute lumbosacral myofascial strain Instructions: ED Back Sprain/Strain, ED Hip Strain Prescriptions: New hydrocodone-acetaminophen 5-325 mg tablet 1 tab PO Q6H PRN PRN (Reason: Pain) 3 Days Qty: 10 0RF No Action zinc 50 mg tablet 50 mg PO DAILY calcium carbonate [Calcium 500] 500 mg calcium (1,250 mg) tablet 500 mg PO DAILY ascorbic acid (vitamin C) 500 mg capsule 500 mg PO DAILY cyanocobalamin (vitamin B-12) 1,000 mcg capsule 1,000 mcg PO DAILY hydroxychloroquine [Plaquenil] 200 mg tablet 200 mg PO DAILY ibuprofen 200 mg capsule 600 mg PO Q6H PRN (Reason: Pain) Azo Cranberry 250 mg tablet,chewable 250 mg PO TID clobetasol 0.05 % ointment 1 applic topical QHS Qty: 30 3RF Rx Instructions: apply thin layer; massage gently into affected area nightly x 6 weeks then 1-2x weekly nitrofurantoin 50 mg capsule PO meloxicam 15 MG tablet 15 mg PO DAILY Patient Comments: take 1 tablet by mouth once daily sulfamethoxazole-trimethoprim 800-160 mg tablet 1 tab PO BID Qty: 20 0RF Prolia 60 mg/mL syringe 60 mg subcut [id number] Qty: 1 0RF pantoprazole 20 mg tablet,delayed release (DR/EC) 20 mg PO DAILY Qty: 90 1RF Primary Care Provider: Rich Rivera Referrals: Rich Rivera MD [Primary Care Provider] - 5-7 Days Print Language: [place] Rican Disposition Disposition: Home, Self Care
== END 2023-10-16 21:41 | disposition home or self-care (01) ==
PROVIDERS: Emergency Provider Emergency Medicine; PCP Internal Medicine; Visit Provider Emergency Medicine
DX: S76.012A Strain of muscle, fascia and tendon of left hip, initial encounter (principal); S39.012A Strain of muscle, fascia and tendon of lower back, initial encounter; X58.XXXA Exposure to other specified factors, initial encounter
CPT/HCPCS: 73502; 99282

== ENCOUNTER → 2024-04-03 | Outpatient (CLI) | payer MEDICARE, BC, SELFPAY ==
[2024-04-03 12:51] LABS: Absolute Lymphocyte Count 1.76 X10^3/uL (0.83-4.51); Basophil# 0.06 X10^3/uL; Basophil% 0.9 % (0-1); Eosinophil# 0.15 X10^3/uL; Eosinophils% 2.4 % (0-5); Hematocrit 44.4 % (37-47); Hemoglobin 13.9 g/dL (12.0-15.0); Lymphocyte # 1.76 X10^3/ul (0.83-4.51); Lymphocyte % 27.6 % (19-41); Mean Corp Hgb Conc 31.3 g/dL (32-36); Mean Corpuscular Hgb 29.1 pg (27.0-32.0); Mean Corpuscular Volume 93.1 fL (81-99); Mean Platelet Vol. 11.3 fl (6.2-12.0); Monocyte# 0.43 X10^3/uL; Monocyte% 6.7 % (0-10); NRBC Flagged by Analyzer 0 % (0-5); Neutrophil # 3.97 X10^3/uL (2.7-7.7); Neutrophil % 62.2 % (47-70); Platelet Count 199 K/mm3 (150-450); RBC Distribution Width CV 12.8 % (11.6-14.6); RBC Distribution Width SD 44.1 fl (35.1-43.9); Red Blood Count 4.77 M/mm3 (4.2-5.4); White Blood Count 6.4 K/mm3 (4.4-11.0)
[2024-04-03 13:03] LABS: ALB/GLOB Ratio 1.1 RATIO (0.9-2.4); AST(SGOT) 16 U/L (15-37); Alanine Aminotransfer ALT/SGPT 19 U/L (13-56); Albumin, Serum 3.6 g/dL (3.2-5.0); Alkaline Phosphatase 56 U/L (45-117); Anion Gap 5 (5-15); BUN 13 mg/dL (7-18); BUN/Creat Ratio 15.9 RATIO (10-20); Calcium,Total 8.9 mg/dL (8.5-10.1); Chloride 105 mmol/L (98-107); Cholesterol 217 mg/dL (200); Creatinine, Serum 0.82 mg/dL (0.55-1.02); EST Glomerular Filtration Rate 72 mL/min (>60); Est Glom Filt Rate - Afr Amer 88 mL/min (>60); Globulin 3.3 g/dL (2.2-4.2); Glucose 92 mg/dL (74-106); High Density Lipoprotein 73 mg/dL; Potassium 4.3 mmol/L (3.5-5.1); Protein, Total 6.9 g/dL (6.4-8.2); Sodium Level 139 mmol/L (136-145); Triglycerides 136 mg/dL; Very Low Density Lipoprotein 27 mg/dL (5-40)
== END | disposition home or self-care (01) ==
LOC: BIMLAB 11:02
PROVIDERS: PCP Internal Medicine; Referring Provider Internal Medicine; Visit Provider Internal Medicine
DX: E78.5 Hyperlipidemia, unspecified (principal)
CPT/HCPCS: 36415; 80053; 80061; 85025

== ENCOUNTER 2024-07-13 17:44 | Emergency (ER) | payer MEDICARE, BC, SELFPAY ==
[2024-07-13 17:45] VITALS: BP 155/88; PULSE 78; RESP 19; TEMP 36.7; O2SAT 98
[2024-07-13 18:04] LABS: Absolute Neutrophil Count 4.6 X10^3/uL (2.0-7.7); Basophil# 0.04 X10^3/uL; Basophil% 0.5 % (0-1); Eosinophil# 0.18 X10^3/uL; Eosinophils% 2.2 % (0-5); Hematocrit 41.4 % (37-47); Hemoglobin 13.4 g/dL (12.0-15.0); Lymphocyte % 34.9 % (19-41); Mean Corp Hgb Conc 32.4 g/dL (32-36); Mean Corpuscular Hgb 29.1 pg (27.0-32.0); Mean Platelet Vol. 10.5 fl (6.2-12.0); Monocyte# 0.61 X10^3/uL; Monocyte% 7.3 % (0-10); NRBC Flagged by Analyzer 0 % (0-5); Neutrophil # 4.55 X10^3/uL (2.7-7.7); Neutrophil % 54.9 % (47-70); Platelet Count 220 K/mm3 (150-450); RBC Distribution Width CV 13.2 % (11.6-14.6); White Blood Count 8.3 K/mm3 (4.4-11.0)
[2024-07-13 18:38] LABS: ALB/GLOB Ratio 1.8 RATIO (0.9-2.4); AST(SGOT) 25 U/L (<=31); Alanine Aminotransfer ALT/SGPT 16 U/L (<=34); Albumin, Serum 4.3 g/dL (3.4-4.8); Alkaline Phosphatase 56 U/L (35-104); Anion Gap 10 (5-15); BUN 15 mg/dL (4-19); BUN/Creat Ratio 18.5 RATIO (10-20); Calcium,Total 9.4 mg/dL (7.6-11.0); Carbon Dioxide 27.5 mmol/L (21.0-32.0); Chloride 103 mmol/L (98-108); Creatinine, Serum 0.81 mg/dL (0.70-1.20); EST Glomerular Filtration Rate 76 (>60); Globulin 2.4 g/dL (2.2-4.2); Glucose 93 mg/dL (70-99); Potassium 3.7 mmol/L (3.3-5.1); Protein, Total 6.7 g/dL (5.9-8.4); Sodium Level 140 mmol/L (133-145); Total Bilirubin 0.39 mg/dL (0.00-1.30)
[2024-07-13 19:18] LABS: Bacteria 0 SEEN /hpf (None Seen); Mucous, Urine 0 SEEN /hpf (<or=2+)
[2024-07-13 20:10] LABS: Color, Urine Yellow (Yellow); Glucose, Dipstick Normal (Normal); Ketone-Dipstick Negative (Negative); Leukocyte Esterase-Dipstick 500 /ul (Negative); Nitrite-Dipstick Negative (Negative); Occult Blood-Urine Negative /ul (Negative); Protein-Dipstick 15 mg/dl (Negative); Urine Bilirubin Dipstick Negative (Negative); Urine Clarity Clear (Clear); Urine Urobilinogen Normal (Normal); Urine pH 6.5 (5.0 - 8.0)
--- NOTE | 2024-07-13 20:32 | EX.ED.DYSGE1 ---
HPI History of Present Illness Chief Complaint: Flank Pain [facility] Medical History (Updated 07/13/24 @ 22:[address] Devan Newman, DO) Preoperative evaluation to rule out surgical contraindication Hyperlipidemia Health care maintenance Torn rotator cuff Pain of right great toe Diverticulitis Shoulder pain Hemorrhoids History of UTI Arthritis Angiomyolipoma of kidney Melanoma in situ of back Osteoporosis Basal cell carcinoma (BCC) of back Home Medications ?Medication ?Instructions ?Recorded ?Last Taken ?Type meloxicam 15 mg tablet 15 mg PO DAILY 04/14/17 Unknown History calcium carbonate (Calcium 500) 500 mg PO DAILY 10/23/19 Unknown History zinc 50 mg tablet 50 mg PO DAILY 10/23/19 Unknown History ascorbic acid (vitamin C) 500 mg 500 mg PO DAILY 10/28/19 Unknown History capsule cyanocobalamin (vitamin B-12) 1,000 mcg PO DAILY 06/13/20 Unknown History 1,000 mcg capsule hydroxychloroquine 200 mg tablet 200 mg PO DAILY 06/13/20 Unknown History (Plaquenil) denosumab 60 mg/mL subcutaneous 60 mg subcut [id number] #1 mL 03/20/22 Unknown Rx syringe (Prolia) cranberry fruit concentrate 250 mg 250 mg PO TID 06/25/22 Unknown History chewable tablet (Azo Cranberry) cholecalciferol (vitamin D3) 25 25 mcg PO QDAY 04/03/24 Unknown History mcg (1,000 unit) capsule pantoprazole 20 mg tablet,delayed 20 mg PO DAILY #90 tabs 06/02/24 Unknown Rx release ciprofloxacin HCl 500 mg tablet 500 mg PO BID 7 days #14 TABLETS 07/13/24 Unknown Rx Allergy/AdvReac Type Severity Reaction Status Date / Time betamethasone Allergy Severe Swelling Verified 07/13/24 17:45 erythromycin base Allergy Severe Swelling Verified 07/13/24 17:45 clindamycin Allergy Swelling Verified 07/13/24 17:45 ketoprofen (From Orudis) Allergy Unknown Verified 07/13/24 17:45 Penicillins Allergy Hives Verified 07/13/24 17:45 prednisone Allergy Hives Verified 07/13/24 17:45 Family History Grandmother Breast cancer, Onset Age: 50 Father Myocardial infarction Sister Asthma Grandfather CVA (cerebral vascular accident) Parkinsons disease Mother Parkinsons disease Osteoporosis Surgical History H/O: knee surgery Social History household members: spouse Smoking Status: Never smoker alcohol intake: never substance use type: does not use caffeine: Yes what type of physical activity do you participate in: walking seatbelt use: always do you feel safe at home: Yes additional social history: Robby- both are self employed EXAM Physical Exam Const Vital Signs: 07/13/24 17:45 07/13/24 20:52 07/13/24 22:00 Temperature 98.1 F Temperature Source Oral Pulse Rate 78 58 L Respiratory Rate 19 H Blood Pressure 155/88 H 137/81 H 121/71 H Blood Pressure Mean 110 99 87 Pulse Ox 98 99 98 Oxygen Delivery Method Room Air Room Air Room Air 07/13/24 22:14 Temperature 98.1 F Temperature Source Pulse Rate 60 Respiratory Rate 16 Blood Pressure 116/69 Blood Pressure Mean 84 Pulse Ox 98 Oxygen Delivery Method MDM MDM MDM Narrative Medical decision making narrative: HISTORY OF PRESENT ILLNESS: Chief complaint: Flank pain 74-year-old female history of cystitis, hyperlipidemia, recurrent UTI, GERD presents with right-sided flank pain that started last week. Notes is getting worse. Denies vomiting. Denies falls or other trauma. No fever. REVIEW OF SYSTEMS: Pertinent positives: Flank pain Pertinent negatives: Vomiting PHYSICAL EXAM: Nursing triage notes reviewed, Vital signs reviewed Constitutional: please see mdm HENT: MMM Eyes: Pupils equal round and reactive to light, Extraocular muscles intact Neck: No stridor, no JVD, full neck ROM Lungs: Clear to auscultation, No wheezing or rales. No increased work of breathing, no conversational dyspnea, no accessory muscle use, no nasal flaring. No respiratory distress noted Heart: Regular rate and rhythm, No murmurs, No rubs and No gallops, 2+ distal pulses (radial, femoral, posterior tibial) in all extremities Abdomen: Soft, there is no tenderness, rigidity, rebound or guarding, no obvious peritoneal signs, no palpable pulsatile abdominal masses, no auscultated abdominal bruit : No CVAT Extremities: No edema Neuro: No new focal neurological deficits, cranial nerves II through XII intact, 5/5 strength in all present extremities. Intact sensation to light touch in all present extremities, 2+ reflexes bilateral patella tendons. Skin: No rash or lesions noted MEDICAL DECISION MAKING: Chief Complaint: please see HPI External records reviewed: Reviewed prior imaging studies: Reviewed CT scan abdomen pelvis from September 2023 which showed liver cysts, diverticulosis Factors affecting care: As per HPI Social determinants of health: none History obtained from others: none Consults: none [facility] Narrative: 74-year female presents right flank pain. The patient was initially hemodynamically stable, afebrile and nontoxic-appearing I considered the following differential diagnosis: Pyelonephritis, kidney stone, AAA ALL IMAGES (IF OBTAINED) HAVE BEEN PERSONALLY REVIEWED AND INTERPRETED BY MYSELF. CBC without leukocytosis, severe anemia, no thrombocytopenia. CMP without evidence of acute kidney injury, significant electrolyte abnormality, anion gap to suggest end organ hypo-perfusion, no evidence of metabolic acidosis with a normal bicarbonate, no evidence of hepatobiliary obstructive pathology. Urinalysis with signs of inflammation with positive leuk esterase but nitrite was negative CT scan abdomen pelvis shows no acute process. No sign of AAA. The synthesis of the patient's history, physical exam, labs images suggest possibly pyelonephritis given flank pain and signs of urinary inflammation. Is not definitive. Will send urine for culture. Will start on prophylactic antibiotics (ciprofloxacin). Strict return precautions will be discussed. The patient and/or family, caregivers express understanding. The patient and/or family, caregivers agrees with the plan. Shared decision making: I will have a discussion with the patient and or visitors regarding risk/benefits of further testing or admission. They will be made aware of of the risk/benefits inherent in this decision they will be given the opportunity to voice understanding. Total critical care time today provided was at least 0 minutes. This excludes separately billable procedures. Critical care time (if documented) is secondary to the patient having high probability of clinically significant/life threatening deterioration in the patient's condition which required my urgent intervention. Impression: 1. Acute flank pain 2. Pyelonephritis Dispo: Discharge home This note was generated with [employer] dictation software. It may contain incorrect words, spelling, and punctuation that were not noted in review of the chart prior to signing. Lab Data Labs: Laboratory Results - last 24 hr 07/13/24 07/13/24 17:52 19:11 WBC 8.3 RBC 4.60 Hgb 13.4 Hct 41.4 MCV 90.0 MCH 29.1 MCHC 32.4 RDW Std Deviation 43.0 RDW Coeff of Archana 13.2 Plt Count 220 MPV 10.5 Immature Gran % (Auto) 0.200 Neut % (Auto) 54.9 Lymph % (Auto) 34.9 [place] % (Auto) 7.3 Eos % (Auto) 2.2 Baso % (Auto) 0.5 Absolute Neuts (auto) 4.6 Absolute Lymphs (auto) 2.90 Nucleated RBC % 0 Sodium 140 Potassium 3.7 Chloride 103 Carbon Dioxide 27.5 Anion Gap 10 BUN 15 Creatinine 0.81 Est GFR (MDRD) Non-Af 76 BUN/Creatinine Ratio 18.5 Glucose 93 Calcium 9.4 Total Bilirubin 0.39 AST 25 ALT 16 Alkaline Phosphatase 56 Total Protein 6.7 Albumin 4.3 Globulin 2.4 Albumin/Globulin Ratio 1.8 Urine Color Yellow Urine Clarity Clear Urine pH 6.5 Ur Specific [place] 1.010 Urine Protein 15 H Urine Glucose (UA) Normal Urine Ketones Negative Urine Occult Blood Negative Urine Nitrite Negative Urine Bilirubin Negative Urine Urobilinogen Normal Ur Leukocyte Esterase 500 H Urine RBC 0-5 SEEN Urine WBC 10-25 SEEN Ur Squamous Epith Cells 0-5 SEEN Urine Bacteria 0 SEEN Urine Mucus 0 SEEN Radiography Diagnostic Testing: Clinical Impression(s) from Imaging Studies Abdomen/Pelvis CT 07/13/24 20:55 IMPRESSION: 1. Small esophageal hiatal hernia. 2. Hepatomegaly with fatty infiltration. 3. No acute process. No significant change from the prior exam. Reading Location: [facility] Discharge Plan Triage Chief Complaint: Flank Pain ED Provider: Devan Newman Dx/Rx/DC Orders Clinical Impression: Acute pyelonephritis Instructions: ED Pyelonephritis, Female (Adult) Prescriptions: New ciprofloxacin HCl 500 mg tablet 500 mg PO BID 7 Days Qty: 14 0RF No Action zinc 50 mg tablet 50 mg PO DAILY calcium carbonate [Calcium 500] 500 mg calcium (1,250 mg) tablet 500 mg PO DAILY ascorbic acid (vitamin C) 500 mg capsule 500 mg PO DAILY cyanocobalamin (vitamin B-12) 1,000 mcg capsule 1,000 mcg PO DAILY hydroxychloroquine [Plaquenil] 200 mg tablet 200 mg PO DAILY Azo Cranberry 250 mg tablet,chewable 250 mg PO TID cholecalciferol (vitamin D3) 25 mcg (1,000 unit) capsule 25 mcg PO QDAY meloxicam 15 MG tablet 15 mg PO DAILY Patient Comments: take 1 tablet by mouth once daily Prolia 60 mg/mL syringe 60 mg subcut [id number] Qty: 1 0RF pantoprazole 20 mg tablet,delayed release (DR/EC) 20 mg PO DAILY Qty: 90 1RF Primary Care Provider: Rich Rivera Referrals: Rich Rivera MD [Primary Care Provider] - Activity Restrictions/Additional Instructions: Thank you for trusting us with your care today! Please take Tylenol (2 pills, 650 mg), ibuprofen (2 pills, 400 mg) every 6 hours as needed for pain and fever control. Please return to the emergency department if your symptoms change or worsen. Please follow with your primary care physician for further outpatient evaluation and management. Print Language: Bulgarian Disposition Disposition: Home, Self Care Discharge Date/Time: 07/13/24 22:40
[2024-07-13] MEDS: 0.9% Normal Saline (500mL Bag) 500 ML 999 ML IV (20:51)
[2024-07-13 20:52] VITALS: BP 137/81; PULSE 58; O2SAT 99
[2024-07-13 20:53] VITALS: BMI 26.0
--- NOTE | 2024-07-13 20:55 | CT_ITS ---
EXAM: CT Abdomen and Pelvis With Intravenous Contrast CLINICAL INDICATION: LEFT FLANK PAIN TECHNIQUE: Axial computed tomography images of the abdomen and pelvis with intravenous contrast. This CT exam was performed using one or more of the following dose reduction techniques: automated exposure control, adjustment of the mA and/or kV according to patient size, and/or use of iterative reconstruction technique. COMPARISON: CT Abdomen Pelvis dated 09/25/2023 FINDINGS: LUNG BASES: Unremarkable. No mass. No consolidation. MEDIASTINUM: Small esophageal hiatal hernia. ABDOMEN: LIVER: Hepatomegaly with fatty infiltration. Hepatic cyst, stable. GALLBLADDER AND BILE DUCTS: Unremarkable. No calcified stones. No ductal dilation. PANCREAS: Unremarkable. No mass. No ductal dilation. SPLEEN: Unremarkable. No splenomegaly. ADRENALS: Unremarkable. No mass. KIDNEYS AND URETERS: 1.0 cm hypodense lesion of the kidney with possible small isodense septa could represent angiomyolipoma, stable. No hydronephrosis. STOMACH AND BOWEL: Constipation. Colonic diverticulosis without acute diverticulitis. No obstruction. PELVIS: APPENDIX: No findings to suggest acute appendicitis. BLADDER: Unremarkable. No mass. REPRODUCTIVE: Unremarkable as visualized. ABDOMEN and PELVIS: INTRAPERITONEAL SPACE: Unremarkable. No free air. No significant fluid collection. BONES/JOINTS: No acute fracture. No dislocation. SOFT TISSUES: Unremarkable. VASCULATURE: Unremarkable. No abdominal aortic aneurysm. LYMPH NODES: Unremarkable. No enlarged lymph nodes. CT/Abdomen/Pelvis W IV Cont ONLY IMPRESSION: 1. Small esophageal hiatal hernia. 2. Hepatomegaly with fatty infiltration. 3. No acute process. No significant change from the prior exam. Reading Location: [id number]
[2024-07-13 21:14] LABS: Red Blood Cells-Urine 0-5 SEEN /hpf (0-5); Squamous Epithelial Cells - UA 0-5 SEEN /hpf (5-10)
[2024-07-13 21:15] LABS: White Blood Cells 10-25 SEEN /hpf (0-5)
[2024-07-13 22:00] VITALS: BP 121/71; O2SAT 98
[2024-07-13 22:14] VITALS: BP 116/69; PULSE 60; RESP 16; TEMP 36.7; O2SAT 98
== END 2024-07-13 22:40 | disposition home or self-care (01) ==
PROVIDERS: Emergency Provider Emergency Medicine; PCP Internal Medicine; Visit Provider Emergency Medicine
DX: N10 Acute pyelonephritis (principal); K21.9 Gastro-esophageal reflux disease without esophagitis; E78.5 Hyperlipidemia, unspecified; R10.9 Unspecified abdominal pain; Z85.828 Personal history of other malignant neoplasm of skin; Z79.899 Other long term (current) drug therapy; M19.90 Unspecified osteoarthritis, unspecified site
CPT/HCPCS: 74177; 80053; 81001; 85025; 87086; 87088; 96360; 99282; Q9967

== ENCOUNTER 2025-01-06 08:55 | Emergency (ER) | payer MEDICARE, BC, SELFPAY ==
[2025-01-06 08:55] VITALS: BP 114/76; PULSE 80; RESP 16; TEMP 36.2; O2SAT 96; BMI 28.4
--- NOTE | 2025-01-06 09:41 | ED.VIS.FEGU ---
HPI HPI - Female History of Present Illness Chief Complaint: Flank Pain Narrative Narrative: Chief complaint and HPI: 74-year-old female with past medical history of recurrent diverticulitis, GERD, recurrent UTI presents for evaluation of left flank pain. Onset of symptoms several days. Patient denies any trauma or lifting anything heavy. States 2 days ago she developed constipation and diarrhea which she often gets with diverticulitis. States she started fasting yesterday diarrhea/constipation improved. She denies any fever, chills, shortness of breath, chest pain, nausea, vomiting, dysuria. States this feels different than her typical diverticulitis. No history of urolithiasis. Review of systems: See HPI Medications: As listed on the chart Allergies: As listed on the chart PFSH: Per chart Vital signs: As listed on the chart. Reviewed. Physical exam: Gen: A&O x3, NAD Head: Normocephalic, atraumatic Eyes: No sclera icterus, conjunctiva clear ENT: Moist mucous membranes CV: RRR, no murmurs Resp: Lungs CTA BL, no w/r/c GI: Abd soft, non-distended, non-tender, no r/r/g : No CVA tenderness Musc: Full ROM, no deformity, no midline spinal tenderness, no bony step-offs, mild tenderness to palpation of the paraspinal musculature of the lumbar spine Skin: Warm, dry Neuro: Alert, oriented, grossly intact, sensation intact Psych: Cooperative, appropriate mood and affect [facility] Medical History (Updated 01/06/25 @ 11:[address] Pete Leach, ) Preoperative evaluation to rule out surgical contraindication Hyperlipidemia Health care maintenance Torn rotator cuff Pain of right great toe Diverticulitis Shoulder pain Hemorrhoids History of UTI Arthritis Angiomyolipoma of kidney Melanoma in situ of back Osteoporosis Basal cell carcinoma (BCC) of back Home Medications ?Medication ?Instructions ?Recorded ?Last Taken ?Type meloxicam 15 mg tablet 15 mg PO DAILY 04/14/17 Unknown History calcium carbonate (Calcium 500) 500 mg PO DAILY 10/23/19 Unknown History zinc 50 mg tablet 50 mg PO DAILY 10/23/19 Unknown History ascorbic acid (vitamin C) 500 mg 500 mg PO DAILY 10/28/19 Unknown History capsule cyanocobalamin (vitamin B-12) 1,000 mcg PO DAILY 06/13/20 Unknown History 1,000 mcg capsule hydroxychloroquine 200 mg tablet 200 mg PO DAILY 06/13/20 Unknown History (Plaquenil) denosumab 60 mg/mL subcutaneous 60 mg subcut [id number] #1 mL 03/20/22 Unknown Rx syringe (Prolia) cranberry fruit concentrate 250 mg 250 mg PO TID 06/25/22 Unknown History chewable tablet (Azo Cranberry) cholecalciferol (vitamin D3) 25 25 mcg PO QDAY 04/03/24 Unknown History mcg (1,000 unit) capsule pantoprazole 20 mg tablet,delayed 20 mg PO DAILY #90 tabs 12/03/24 Unknown Rx release sulfamethoxazole 800 1 tab PO BID 7 days #13 tabs 01/06/25 Unknown Rx mg-trimethoprim 160 mg tablet (Bactrim DS) Allergy/AdvReac Type Severity Reaction Status Date / Time betamethasone Allergy Severe Swelling Verified 01/06/25 08:58 erythromycin base Allergy Severe Swelling Verified 01/06/25 08:58 Iodinated Contrast Media Allergy Mild Other Verified 01/06/25 10:56 (contrast dye - iodinated) clindamycin Allergy Swelling Verified 01/06/25 08:58 ketoprofen (From Orudis) Allergy Unknown Verified 01/06/25 08:58 Penicillins Allergy Hives Verified 07/13/24 17:45 prednisone Allergy Hives Verified 01/06/25 08:58 Family History Grandmother Breast cancer, Onset Age: 50 Father Myocardial infarction Sister Asthma Grandfather CVA (cerebral vascular accident) Parkinsons disease Mother Parkinsons disease Osteoporosis Surgical History H/O: knee surgery Social History household members: spouse Smoking Status: Never smoker alcohol intake: never substance use type: does not use caffeine: Yes what type of physical activity do you participate in: walking seatbelt use: always do you feel safe at home: Yes additional social history: Robby- both are self employed EXAM Physical Exam Const Vital Signs: 01/06/25 08:55 01/06/25 10:55 Temperature 97.2 F L Temperature Source Temporal Pulse Rate 80 64 Respiratory Rate 16 16 Blood Pressure 114/76 137/74 H Blood Pressure Mean 88 95 Pulse Ox 96 98 Oxygen Delivery Method Room Air Room Air MDM MDM MDM Narrative Medical decision making narrative: 74-year-old female with past medical history of recurrent diverticulitis, GERD, recurrent UTI presents for evaluation of left flank pain. Onset of symptoms several days. Patient denies any trauma or lifting anything heavy. States 2 days ago she developed constipation and diarrhea which she often gets with diverticulitis. States she started fasting yesterday diarrhea/constipation improved. Differential diagnosis includes but is not limited to myofascial spasm, diverticulitis, urolithiasis, UTI, electrolyte abnormality. NS bolus ordered. Patient offered narcotics and Toradol however declined. States she already took Tylenol. Laboratory workup ordered including CT abdomen and pelvis. CBC without leukocytosis or anemia. UA positive for UTI. On chart review, patient's previous urine cultures have grown out mixed gram-positive organisms as well as E. coli. E. coli pansensitive. Urine culture sent. CT abdomen pelvis shows borderline hepatomegaly with stable 9.5 mm cyst of the liver. Stable 1 cm angiomyolipoma along the right kidney. Scattered diverticuli. No urolithiasis. No diverticulitis. BMP unremarkable. Patient's symptoms may be secondary to UTI versus myofascial spasm. No concern for pyelonephritis given patient has no CVA tenderness and no leukocytosis. Patient has multiple allergies to antibiotics. Will place on Bactrim. First dose given here. Motrin and Tylenol as needed for pain. Follow-up with primary care physician. Return precautions explained. She confirmed understand the plan. Patient able to discharge home. Impression: 1. Left flank pain 2. UTI Lab Data Labs: Laboratory Results - last 24 hr 01/06/25 01/06/25 10:12 10:31 WBC 7.1 RBC 4.87 Hgb 14.7 Hct 45.0 MCV 92.4 MCH 30.2 MCHC 32.7 RDW Std Deviation 44.3 H RDW Coeff of Archana 13.1 Plt Count 225 MPV 10.3 Immature Gran % (Auto) 0.100 Neut % (Auto) 63.4 Lymph % (Auto) 27.4 [place] % (Auto) 7.0 Eos % (Auto) 1.7 Baso % (Auto) 0.4 Absolute Neuts (auto) 4.5 Absolute Lymphs (auto) 1.93 Nucleated RBC % 0 Sodium 140 Potassium 4.0 Chloride 103 Carbon Dioxide 28.2 Anion Gap 9 BUN 12 Creatinine 0.78 Estim Creat Clear Calc 64.83 Est GFR (MDRD) Non-Af 80 BUN/Creatinine Ratio 15.2 Glucose 96 Calcium 8.9 Urine Color Yellow Urine Clarity Sl Cloudy Urine pH 6.5 Ur Specific [place] 1.010 Urine Protein 15 H Urine Glucose (UA) Normal Urine Ketones Negative Urine Occult Blood 10 H Urine Nitrite Positive H Urine Bilirubin Negative Urine Urobilinogen Normal Ur Leukocyte Esterase 500 H Urine RBC 0 SEEN Urine WBC 5-10 SEEN Ur Squamous Epith Cells 5-10 SEEN Ur Transition Epith Cell 0-5 SEEN Other Crystals 1+ Urine Bacteria 3+ Urine Mucus 0 SEEN Radiography Diagnostic Testing: Clinical Impression(s) from Imaging Studies Abdomen/Pelvis CT 01/06/25 10:50 IMPRESSION: Stable examination. Borderline hepatomegaly. Gallstones. Stable hepatic cysts Reading Location: [id number] Discharge Plan Triage Chief Complaint: Flank Pain ED Provider: Pete Leach Dx/Rx/DC Orders Clinical Impression: Flank pain, left side, Acute UTI Instructions: Urinary Tract Infections in Women Prescriptions: New sulfamethoxazole-trimethoprim [Bactrim DS] 800-160 mg tablet 1 tab PO BID 7 Days Qty: 13 0RF Rx Instructions: Received her first dose in the emergency department Discontinued ciprofloxacin HCl 500 mg tablet 500 mg PO BID 7 Days Qty: 14 0RF No Action zinc 50 mg tablet 50 mg PO DAILY calcium carbonate [Calcium 500] 500 mg calcium (1,250 mg) tablet 500 mg PO DAILY ascorbic acid (vitamin C) 500 mg capsule 500 mg PO DAILY cyanocobalamin (vitamin B-12) 1,000 mcg capsule 1,000 mcg PO DAILY hydroxychloroquine [Plaquenil] 200 mg tablet 200 mg PO DAILY Azo Cranberry 250 mg tablet,chewable 250 mg PO TID cholecalciferol (vitamin D3) 25 mcg (1,000 unit) capsule 25 mcg PO QDAY meloxicam 15 MG tablet 15 mg PO DAILY Patient Comments: take 1 tablet by mouth once daily Prolia 60 mg/mL syringe 60 mg subcut [id number] Qty: 1 0RF pantoprazole 20 mg tablet,delayed release (DR/EC) 20 mg PO DAILY Qty: 90 1RF Primary Care Provider: Rich Rivera Referrals: Rich Rivera MD [Primary Care Provider, Internal Medicine] - 3-5 Days Activity Restrictions/Additional Instructions: Follow-up with primary care physician. Take all of your antibiotics. You received your first dose here in the emergency department. Return back to ED if symptoms change or worsen. Print Language: Maltese Disposition Disposition: Home, Self Care
[2025-01-06 10:17] LABS: Mucous, Urine 0 SEEN /hpf (<or=2+); Red Blood Cells-Urine 0 SEEN /hpf (0-5)
[2025-01-06 10:22] LABS: Glucose, Dipstick Normal (Normal); Ketone-Dipstick Negative (Negative); Leukocyte Esterase-Dipstick 500 /ul (Negative); Nitrite-Dipstick Positive (Negative); Occult Blood-Urine 10 /ul (Negative); Protein-Dipstick 15 mg/dl (Negative); Specific Gravity, Urine 1.010 (1.002-1.030); Urine Bilirubin Dipstick Negative (Negative)
[2025-01-06] MEDS: 0.9% Normal Saline (1000mL) 1,000 ML 999 ML IV (10:29)
[2025-01-06 10:43] LABS: Hematocrit 45.0 % (37-47); Hemoglobin 14.7 g/dL (12.0-15.0); Immature Granulocytes Count 0.010 X10^3/uL (0.0-0.0); Mean Corp Hgb Conc 32.7 g/dL (32-36); Mean Corpuscular Volume 92.4 fL (81-99); Mean Platelet Vol. 10.3 fl (6.2-12.0); NRBC Flagged by Analyzer 0 % (0-5); Platelet Count 225 K/mm3 (150-450); RBC Distribution Width CV 13.1 % (11.6-14.6); RBC Distribution Width SD 44.3 fl (35.1-43.9); Red Blood Count 4.87 M/mm3 (4.2-5.4); White Blood Count 7.1 K/mm3 (4.4-11.0)
[2025-01-06 10:47] LABS: Color, Urine Yellow (Yellow)
--- NOTE | 2025-01-06 10:50 | CT_ITS ---
PROCEDURE: CT/Abdomen/Pelvis W IV Cont ONLY
[2025-01-06 10:55] VITALS: BP 137/74; PULSE 64; RESP 16; O2SAT 98
[2025-01-06 10:57] LABS: Squamous Epithelial Cells - UA 5-10 SEEN /hpf (5-10); Transitional Epithelial - Ur 0-5 SEEN /hpf (0-5)
[2025-01-06 10:59] LABS: Other Crystals-Urine 1+ /hpf (None Seen)
[2025-01-06 11:24] LABS: Anion Gap 9 (5-15); BUN 12 mg/dL (4-19); BUN/Creat Ratio 15.2 RATIO (10-20); Calcium,Total 8.9 mg/dL (7.6-11.0); Carbon Dioxide 28.2 mmol/L (21.0-32.0); Chloride 103 mmol/L (98-108); Estimated Creatinine Clearance 64.83 ml/min (50-250); Glucose 96 mg/dL (70-99); Potassium 4.0 mmol/L (3.3-5.1)
[2025-01-06] MEDS: Smz/Tmp Ds Tablet 1 TABLET PO (12:20)
[2025-01-06 12:23] VITALS: BP 124/73; PULSE 71; RESP 16; TEMP 36.9; O2SAT 97
== END 2025-01-06 12:25 | disposition home or self-care (01) ==
PROVIDERS: Emergency Provider Surgery; PCP Internal Medicine; Visit Provider Surgery
DX: N39.0 Urinary tract infection, site not specified (principal); E78.5 Hyperlipidemia, unspecified; K21.9 Gastro-esophageal reflux disease without esophagitis; R10.A2 Flank pain, left side; Z85.828 Personal history of other malignant neoplasm of skin; M81.0 Age-related osteoporosis without current pathological fracture; Z79.1 Long term (current) use of non-steroidal anti-inflammatories (NSAID)
CPT/HCPCS: 74177; 80048; 81001; 85025; 87086; 87088; 87186; 96360; 96361; 99283; Q9967